=== PATIENT | female | born 1995 | race African-American/Black ===

== ENCOUNTER 2016-07-15 14:27 | Emergency (ER) | payer SELFPAY ==
[~2016-07-15] VITALS: Ht 154.9 cm; Wt 55.0 kg
[~2016-07-15 14:27] MED LIST: ALBU6.7H INH; EXTR500C PO; LABE200 PO; MOBI15TA PO; NIFE1TAB85 PO; TRAM50 PO; ZOFR4TAB PO
[2016-07-15 14:29] VITALS: BP 113/73; PULSE 78; RESP 14; TEMP 98.3; O2SAT 98
--- NOTE | 2016-07-15 15:13 | PD ---
HPI Chief Complaint: Abdominal Pain Time Seen by Provider: 15:13 Travel History International Travel<30 days: No Contact w/Intl Traveler<30days: No Traveled to known affect area: No History of Present Illness HPI 20-year-old female presents to the emergency department for evaluation of lower abdominal pain for 3 weeks. States that the pain is intermittent. States that it is sometimes sharp and sometimes like a squeezing pain. Denies any aggravating or alleviating factors. She is not taking anything for her symptoms so far. Denies any fever, chills, nausea, vomiting, diarrhea, constipation, burning with urination, painful urination, hematuria, vaginal discharge. Denies , last menstrual period was 2 weeks ago. She does admit to being told she had an ovarian cyst in the past. Denies any prior abdominal surgeries. Patient is sexually active. No other complaints. PFSH Past Medical History Hx Anticoagulant Therapy: No ADHD: No Asthma: Yes Blood Disorders: No Anxiety: Yes Depression: Yes Cardiovascular Problems: Yes (HTN) Chemotherapy: No Cerebrovascular Accident: No Diabetes: No Diminished Hearing: No Respiratory: Yes (ASTHMA) Immunizations Current: Yes Seizures: No ?: Not LMP: 07/05/16 : 2 Para: 1 Past Surgical History Section: Yes Hysterectomy: No Other Surgery: No Social History Alcohol Use: No Tobacco Use: No Substance Use: No Allergies-Medications (Allergen,Severity, Reaction): Coded Allergies: Bees (Verified Allergy, Severe, SWELLS UP, 07/15/16) [place] (Verified Allergy, Severe, SWELLS UP, 07/15/16) PEANUTS (Verified Allergy, Severe, SWELLS UP, 07/15/16) Wasp (Verified Allergy, Severe, SWELLS UP, 07/15/16) Reported Meds & Prescriptions Reported Meds & Active Scripts Active Zofran (Ondansetron HCl) 4 Mg Tab 4 Mg PO Q6HR PRN Acetaminophen Extra Strength (Acetaminophen) 500 Mg Cap 1,000 Mg PO Q6H PRN Ultram (Tramadol HCl) 50 Mg Tab 1 Tab PO Q6HR FOR PAIN Mobic (Meloxicam) 15 Mg Tab 15 Mg PO DAILY Nifedipine Er (Nifedipine) 30 Mg Tab 30 Mg PO DAILY Trandate 200 M200 Mg 200 Mg Tab 200 Mg PO Q12HR Reported Proventil Hfa (Albuterol Sulfate) 6.7 Gm Aero 0 INH UNKNOWN DOSE Review of Systems Except as stated in HPI: all other systems reviewed are Neg Physical Exam Narrative GENERAL: Well-nourished and well-developed pleasant patient in no acute distress who is nontoxic appearing. SKIN: Warm and dry. HEAD: Normocephalic and atraumatic. EYES: No injection, drainage, or hyphema noted. PERRLA. EOMI. ENT: No nasal drainage noted. Oropharynx is clear. NECK: Supple and the trachea is midline. CARDIOVASCULAR: Regular rate and rhythm. RESPIRATORY: Breath sounds are equal bilaterally with no accessory muscle use, wheezing, rhonchi, or crackles. GASTROINTESTINAL: Mild suprapubic tenderness to palpation. Abdomen is soft and nondistended. Negative McBurney's point. Negative Lei sign. No rebound tenderness or guarding. GENITOURINARY: Normal external genitalia without lesions or erythema. Vaginal vault without blood or drainage. Positive cervical motion tenderness. Uterus nontender and nonenlarged. Bilateral adnexa nontender without masses. MUSCULOSKELETAL: No obvious deformities, swelling, cyanosis, or ecchymosis is present throughout the upper and lower extremities. NEUROLOGICAL: Awake, alert, and oriented. Normal speech and gait. Cranial nerves are grossly intact. Data Data Last Documented VS Vital Signs Date Time Temp Pulse Resp B/P Pulse Ox O2 Delivery O2 Flow Rate FiO2 07/15/16 14:29 98.3 78 14 113/73 98 Room Air Orders Gc And Chlamydia Pcr (07/15/16 15:12) Wet Prep Profile (07/15/16 15:12) Urinalysis - C+S If Indicated (07/15/16 15:12) Ed Urine Pregnancytest Poc (07/15/16 15:12) Ceftriaxone Inj (Rocephin Inj) (07/15/16 16:00) Lidocaine 1% Inj (50 Ml) (Xylocaine 1% I (07/15/16 16:00) Azithromycin (Zithromax) (07/15/16 16:00) Labs Laboratory Tests Test 07/15/16 15:35 Urine Color YELLOW Urine Turbidity HAZY Urine pH 6.0 Urine Specific [place] 1.019 Urine Protein NEG mg/dL Urine Glucose (UA) NEG mg/dL Urine Ketones NEG mg/dL Urine Occult Blood NEG Urine Nitrite NEG Urine Bilirubin NEG Urine Urobilinogen LESS THAN 2.0 MG/DL Urine Leukocyte Esterase NEG Urine RBC LESS THAN 1 /hpf Urine WBC 1 /hpf Urine Squamous Epithelial 4 /hpf Cells Microscopic Urinalysis Comment CULT NOT INDICATED Clue Cells (Wet Prep) NONE SEEN Vaginal Trichomonas (Wet Prep) NONE SEEN Vaginal Yeast (Wet Prep) NONE SEEN MDM Medical Decision Making Medical Screen Exam Complete: Yes Emergency Medical Condition: Yes Differential Diagnosis STI versus PID versus cystitis versus urethritis versus ovarian cyst Narrative Course 20-year-old female presents to the emergency department for evaluation of lower abdominal pain intermittently for 3 weeks. Patient is afebrile, vital signs are stable. There is no associated symptoms. Patient appears very well overall. Abdominal examination is benign. Her pain is more so pelvic, therefore we'll do a urinalysis and pelvic examination. Patient has cervical motion tenderness, suspicious for PID. She'll be treated empirically for gonorrhea and chlamydia. ED urine test is negative. Urinalysis is unremarkable. Wet prep is negative. Gonorrhea and Chlamydia is pending. Discussed supportive care and when to return to the emergency Department. Advised follow-up with health Department or her christmas bell ringer. Patient is stable for discharge. I discussed the case with my attending physician Dr. Butcher who is aware of the patients history, physical examination findings, and treatment plan. Diagnosis Primary Impression: PID (acute pelvic inflammatory disease) Referrals: [facility] [employer] Operator Patient Instructions: General Instructions, Pelvic Inflammatory Disease (ED) Additional Instructions: Follow-up with your Primary Care Physician. Return to the ED for any acute worsening of symptoms. Med/Other Pt SpecificInfo: No Change to Meds Disposition: 01 DISCHARGE HOME Condition: Stable Moon Rosario Jul 15, 2016 15:13
--- NOTE | 2016-07-15 15:53 | PD ---
Data Data Last Documented VS Vital Signs Date Time Temp Pulse Resp B/P Pulse Ox O2 Delivery O2 Flow Rate FiO2 07/15/16 14:29 98.3 78 14 113/73 98 Room Air Orders Gc And Chlamydia Pcr (07/15/16 15:12) Wet Prep Profile (07/15/16 15:12) Urinalysis - C+S If Indicated (07/15/16 15:12) Ed Urine Pregnancytest Poc (07/15/16 15:12) Ceftriaxone Inj (Rocephin Inj) (07/15/16 16:00) Lidocaine 1% Inj (50 Ml) (Xylocaine 1% I (07/15/16 16:00) Azithromycin (Zithromax) (07/15/16 16:00) MDM Supervised Visit with GUCCI: Yes Narrative Course I, Dr. Butcher, have reviewed the advance practice practioner's documentation and am in agreement, met with the patient face to face, made the diagnosis, and the medical decision making was done by me. *My assessment and Findings: 20-year-old female with 3 weeks of intermittent low sharp abdominal discomfort. Benign abdominal examination but on pelvic exam patient has cervical motion tenderness. Symptoms classic for PID, differential includes STD, UTI, . Urine test negative. We' ll treat empirically for PID awaiting wet prep and urine for disposition home. Diagnosis Primary Impression: PID (acute pelvic inflammatory disease) Referrals: Manager Property Additional Instruction: Follow-up with your Primary Care Physician. Return to the ED for any acute worsening of symptoms. Disposition: 01 DISCHARGE HOME Condition: Stable Karyna Butcher MD Jul 15, 2016 15:53
[2016-07-15] MEDS ORDERED: cefTRIAXone 250 MG VIAL IM ONE (16:00)
[2016-07-15] MEDS ORDERED: AZITHROMYCIN 250 MG TAB PO ONE (16:00)
[2016-07-15] MEDS ORDERED: LIDOCAINE HCL 1% 50 ML VIAL IM ONE (16:00)
[2016-07-15 16:11] LABS: BLOOD, URINE NEG (NEG); COMMENT (UR) CULT NOT INDICATED; CULTURE IF INDICATED CULT NOT INDICATED; GLUCOSE,URINE NEG (NEG); KETONE, URINE NEG (NEG); NITRITE,URINE NEG (NEG); SQUAMOUS EPITHELIAL CELL URINE 4 /hpf (0-5); URINE COLOR YELLOW (YELLW/STRAW)
[2016-07-15 17:37] LABS: CHLAMYDIA PCR NOT DETECTED (NOT DETECT); NEISSERIA PCR NOT DETECTED (NOT DETECT)
== END 2016-07-15 16:48 | disposition home or self-care (01) ==
LOC: NEPB 14:27
DX: N73.9 Female pelvic inflammatory disease, unspecified (principal); J45.909 Unspecified asthma, uncomplicated; I10 Essential (primary) hypertension
CPT/HCPCS: 81001; 84703; 87210; 87491; 87591; 96372; 99284; J0696

== ENCOUNTER 2016-09-29 21:27 | Emergency (ER) | payer SELFPAY ==
[~2016-09-29] VITALS: Ht 154.9 cm; Wt 50.0 kg
[2016-09-29 21:46] VITALS: BP 116/74; PULSE 77; RESP 16; TEMP 97.9; O2SAT 100
[2016-09-29] MEDS ORDERED: LURA20TA PO (21:53)
[2016-09-29] MEDS ORDERED: SERT25TA83 PO (21:53)
[2016-09-29] MEDS ORDERED: LABE200T2 PO (21:53)
[2016-09-29 22:00] VITALS: RESP 18; O2SAT 100
[2016-09-29] MEDS ORDERED: SODIUM CHLOR 0.9% 1000 ML INJ 1,000 ML IV ONE (22:00)
[2016-09-29] MEDS ORDERED: SODIUM CHLORIDE 0.9% FLUSH 10 ML FLUSH IVF PRN (22:00)
--- NOTE | 2016-09-29 22:17 | RADRPT ---
EXAM DATE/TIME: 09/29/2016 21:55 [facility] COMPARISON: No previous studies available for comparison. INDICATIONS : Syncope. Possible overdose. MEDICAL HISTORY : Hypertension. SURGICAL HISTORY : section. ENCOUNTER: Initial ACUITY: 1 day PAIN SCORE: 0/10 LOCATION: Bilateral chest FINDINGS: A single view of the chest demonstrates the lungs to be symmetrically aerated without evidence of mas s, infiltrate or effusion. The cardiomediastinal contours are unremarkable. Osseous structures are intact. CONCLUSION: No acute disease. Omar Connell MD FACR on September 29, 2016 at 22:15 Board Certified Radiologist. This report was verified electronically.
--- NOTE | 2016-09-29 22:32 | PD ---
HPI Chief Complaint: OD/ Ingestion Time Seen by Provider: 21:55 Travel History International Travel<30 days: No Contact w/Intl Traveler<30days: No Traveled to known affect area: No History of Present Illness HPI The patient is a 20 year old female who presents to the [facility] emergency department with a history of taking 2 extra doses of her Latuda and 1 extra dose of her sertraline at 7 p.m. to try to help herself sleep. The patient reports that she's been having difficulty sleeping. The patient reports that after doing that as she began to not feel well, reportedly having a mild headache. She called her mom and asked her to come over. When mom arrived, she told her that she took an extra dose of her medicines, therefore mom called 911. The patient denies having any depression or thoughts of harming herself. Upon mom's arrival I also interviewed her and she denies any increased depression or suicidal ideations and the patient. The patient does have a history of bipolar disorder. The patient has been Mcgill acted once as a child. The patient reports that since arriving in the emergency department her headache is improved. The patient denies any recent fevers, cough, congestion, neck pain, chest pain, shortness of breath, abdominal pain, vomiting, diarrhea, urinary symptoms, or other neurologic symptoms. PFSH Past Medical History Narrative Medical The patient's past medical history is significant for bipolar disorder, asthma, history of a learning disability. Hx Anticoagulant Therapy: No ADHD: No Asthma: Yes Blood Disorders: No Anxiety: Yes Depression: Yes Cardiovascular Problems: Yes (HTN) Chemotherapy: No Cerebrovascular Accident: No Diabetes: No Diminished Hearing: No Respiratory: Yes (ASTHMA) Immunizations Current: Yes Seizures: No Tetanus Vaccination: Unknown Influenza Vaccination: No ?: Not LMP: 09/20/16 : 2 Para: 1 Past Surgical History Narrative Surgical The patient's past surgical history is significant for a . Section: Yes Hysterectomy: No Other Surgery: No Social History Alcohol Use: No Tobacco Use: No Substance Use: Yes (MARIJUANA) Allergies-Medications (Allergen,Severity, Reaction): Coded Allergies: Bees (Verified Allergy, Severe, SWELLS UP, 07/15/16) [place] (Verified Allergy, Severe, SWELLS UP, 07/15/16) PEANUTS (Verified Allergy, Severe, SWELLS UP, 07/15/16) Wasp (Verified Allergy, Severe, SWELLS UP, 07/15/16) Reported Meds & Prescriptions Reported Meds & Active Scripts Active Reported Latuda (Lurasidone) 20 Mg Tab 20 Mg PO DAILY Sertraline (Sertraline HCl) 25 Mg Tab 25 Mg PO DAILY Labetalol (Labetalol HCl) 200 Mg Tab 200 Mg PO BID Review of Systems General / Constitutional: No: Fever Eyes: No: Visual changes HENT: Positive: Headaches, No: Sore Throat, Rhinorrhea, Congestion, Neck Stiffness, Neck Pain Cardiovascular: No: Chest Pain or Discomfort Respiratory: No: Cough, Shortness of Breath Gastrointestinal: No: Nausea, Vomiting, Diarrhea, Abdominal Pain Genitourinary: No: Dysuria Musculoskeletal: No: Pain Skin: No Rash Neurologic: Positive: Headache, No: Weakness, Change in Mentation, Slurred Speech, Sensory Disturbance Psychiatric: Positive: Mood Disorder, No: Anxiety, Depression, Suicidal Ideations, Disorder of Thought, Substance Abuse, Homicidal Ideation Endocrine: No: Polydipsia Hematologic/Lymphatic: No: Easy Bruising Physical Exam Narrative General: The patient is a well-developed well-nourished female in no acute distress. Head and Neck exam: Head is normocephalic atraumatic. Eyes: EOMI, pupils are equal round and reactive to light. Nose: Midline septum with pink mucous membranes Mouth: Dentition unremarkable. Moist mucus membranes. Posterior oropharynx is not erythematous. No tonsillar hypertrophy. Uvula midline. Airway patent. Neck: No palpable lymphadenopathy. No nuchal rigidity. No thyromegaly. Cardiovascular: Regular rate and rhythm without murmurs, gallops, or rubs. Lungs: Clear to auscultation bilaterally. No wheezes, rhonchi, or rales. Abdomen: Soft, without tenderness to palpation in all 4 quadrants of the abdomen. No guarding, rebound, or rigidity. Normal bowel sounds are audible. No tenderness on palpation of McBurney's point. Extremities: No clubbing, cyanosis, or edema. 2+ pulses in all 4 extremities. No calf tenderness on palpation. Back: No spinous process tenderness to palpation. No costovertebral angle tenderness to palpation. Neurologic Exam: Grossly nonfocal. Skin Exam: No rash noted. Intact skin that is warm and dry. Data Data Last Documented VS Vital Signs Date Time Temp Pulse Resp B/P Pulse Ox O2 Delivery O2 Flow Rate FiO2 09/29/16 22:00 18 100 Room Air 09/29/16 21:50 77 09/29/16 21:46 97.9 116/74 Orders Electrocardiogram (09/29/16 21:55) Beta Hcg (Quant/Titer) (09/29/16 21:55) Complete Blood Count With Diff (09/29/16 21:55) Comprehensive Metabolic Panel (09/29/16 21:55) Prothrombin Time / Inr (Pt) (09/29/16 21:55) Act Partial Throm Time (Ptt) (09/29/16 21:55) Urinalysis - C+S If Indicated (09/29/16:55) Chest, Single Ap (09/29/16 21:55) Blood Glucose (09/29/16 21:55) Iv Access Insert/Monitor (09/29/16 21:55) Ecg Monitoring (09/29/16 21:55) Oximetry (09/29/16 21:55) Psych Screen (09/29/16 21:55) Sodium Chloride 0.9% Flush (Ns Flush) (09/29/16 22:00) Call Poison Control (09/29/16 21:55) Drug Screen, Random Urine (09/29/16 21:55) Alcohol (Ethanol) (09/29/16 21:55) Salicylates (Aspirin) (09/29/16 21:55) Tylenol (Acetaminophen) (09/29/16 21:55) Sodium Chlor 0.9% 1000 Ml Inj (Ns 1000 M (09/29/16 22:00) Urine Culture (09/29/16 22:00) Labs Laboratory Tests Test 09/29/16 09/29/16 21:40 22:00 White Blood Count 6.0 TH/MM3 Red Blood Count 3.95 MIL/MM3 Hemoglobin 10.4 GM/DL Hematocrit 31.6 % Mean Corpuscular Volume 79.9 FL Mean Corpuscular Hemoglobin 26.2 PG Mean Corpuscular Hemoglobin 32.8 % Concent Red Cell Distribution Width 14.3 % Platelet Count 259 TH/MM3 Mean Platelet Volume 8.2 FL Neutrophils (%) (Auto) 55.1 % Lymphocytes (%) (Auto) 34.2 % Monocytes (%) (Auto) 8.0 % Eosinophils (%) (Auto) 2.3 % Basophils (%) (Auto) 0.4 % Neutrophils # (Auto) 3.3 TH/MM3 Lymphocytes # (Auto) 2.1 TH/MM3 Monocytes # (Auto) 0.5 TH/MM3 Eosinophils # (Auto) 0.1 TH/MM3 Basophils # (Auto) 0.0 TH/MM3 CBC Comment DIFF FINAL Differential Comment Prothrombin Time 11.7 SEC Prothromb Time International 1.1 RATIO Ratio Activated Partial 25.7 SEC Thromboplast Time Sodium Level 141 MEQ/L Potassium Level 3.3 MEQ/L Chloride Level 107 MEQ/L Carbon Dioxide Level 24.7 MEQ/L Anion Gap 9 MEQ/L Blood Urea Nitrogen 7 MG/DL Creatinine 0.87 MG/DL Estimat Glomerular Filtration 99 ML/MIN Rate Random Glucose 102 MG/DL Calcium Level 8.4 MG/DL Total Bilirubin 0.3 MG/DL Aspartate Amino Transf 8 U/L (AST/SGOT) Alanine Aminotransferase 10 U/L (ALT/SGPT) Alkaline Phosphatase 67 U/L Total Protein 7.1 GM/DL Albumin 3.5 GM/DL Human Chorionic Gonadotropin, LESS THAN 1 Quant MIU/ML Salicylates Level LESS THAN 1.7 MG/DL Acetaminophen Level LESS THAN 2.0 MCG/ML Ethyl Alcohol Level LESS THAN 3 MG/DL Urine Color YELLOW Urine Turbidity HAZY Urine pH 6.0 Urine Specific [place] 1.029 Urine Protein 30 mg/dL Urine Glucose (UA) NEG mg/dL Urine Ketones NEG mg/dL Urine Occult Blood NEG Urine Nitrite NEG Urine Bilirubin NEG Urine Urobilinogen 2.0 MG/DL Urine Leukocyte Esterase LARGE Urine RBC 3 /hpf Urine WBC 88 /hpf Urine Squamous Epithelial 3 /hpf Cells Urine Mucus FEW /lpf Microscopic Urinalysis Comment CULTURE INDICATED Urine Opiates Screen NEG Urine Barbiturates Screen NEG Urine Amphetamines Screen NEG Urine Benzodiazepines Screen NEG Urine Cocaine Screen NEG Urine Cannabinoids Screen POS [facility] Medical Decision Making Medical Screen Exam Complete: Yes Emergency Medical Condition: Yes Medical Record Reviewed: Yes Interpretation(s) Last Impressions Chest X-Ray 09/29/16 3344 Signed Impressions: Service Date/Time: Thursday, September 29, 2016 21:55 - CONCLUSION: No acute disease. Omar Connell MD FACR Differential Diagnosis Accidental overdose, versus intentional overdose Narrative Course During the course of the patients emergency department visit, the patients history, examination, and differential diagnosis were reviewed with the patient. The patient had IV access obtained and blood work sent for analysis. The patient was put on a school lunch monitor with oximetry and blood pressure monitoring. An EKG was done on arrival. The patient's EKG reveals a sinus rhythm with a sinus arrhythmia heart rate of 64, no acute ST segment elevation or depression. T waves are inverted in V1, V2. Poison control will be called regarding this patient's case. The patient was provided normal saline 1 L IV fluid bolus. The patients laboratory studies were reviewed and remarkable for white count of 6.0, hemoglobin 10.4, platelets 259 with a normal differential, CMP is remarkable for potassium of 3.3 which was supplemented orally, calcium 8.4, AST 8, test is negative, urine drug screen is positive for cannabinoids, salicylate less than 1.7, acetaminophen less than 2, alcohol level less than 3, PT 11.7, PTT 25.7, urinalysis shows 30 protein, large leukocyte esterase, 3 RBCs , 88 WBCs, 3 squamous epithelial cells, culture indicated. The patient will be treated for a urinary tract infection with Macrobid. Radiology studies were reviewed and remarkable for a chest x-ray that shows no acute abnormality. The patient denies any suicidal or homicidal ideations. She denies having any increased anxiety or depression. The patient was educated regarding the importance of only taking her medications as prescribed. The patient does not seem to be a risk for suicide. Poison control was control was called by the patient's nurse. They recommended observation for 4 hours after the ingestion to assess for any symptoms. The patient has remained asymptomatic. The patient will be discharged home. The patient is resting comfortably and feels better, is alert and in no distress. The patients results and examination findings were discussed with the patient. The repeat examination is unremarkable and benign. The history, exam, diagnostic testing, and current condition do not suggest any significant pathology to warrant further testing, continued ED treatment, admission, or surgical evaluation at this point. The vital signs have been stable. The patient does not have uncontrollable pain, intractable vomiting, or other significant symptoms. The patient's condition is stable and appropriate for discharge. The patient will pursue further outpatient evaluation with a primary care physician or other designated or consulting physician as indicated in the discharge instructions. The patient expressed understanding and was agreeable with this plan. Diagnosis Primary Impression: Accidental overdose Qualified Code: T50.901A - Accidental overdose, initial encounter Additional Impression: Urinary tract infection Qualified Code: N30.00 - Acute cystitis without hematuria Referrals: Primary Care Physician Patient Instructions: General Instructions, Urinary Tract Infection in Women ( ED) Additional Instructions: The patient is instructed regarding the importance of taking her prescriptions as prescribed. She is instructed to avoid ever taking extra doses of her medicine. Med/Other Pt SpecificInfo: Prescription(s) given Disposition: 01 DISCHARGE HOME Condition: Stable Leandra Kramer MD Sep 29, 2016 22:32
[2016-09-29 22:41] LABS: AUTOMATED NEUTROPHIL # 3.3 TH/MM3 (1.8-7.7); BASOPHIL % 0.4 % (0.0-2.0); EOSINOPHIL # 0.1 TH/MM3 (0-0.4); EOSINOPHIL % 2.3 % (0.0-4.0); HEMATOCRIT 31.6 % (35.0-46.0); HEMO FLAGS DIFF FINAL; LYMPH % 34.2 % (9.0-44.0); LYMPHOCYTE # 2.1 TH/MM3 (1.0-4.8); MEAN CELL VOLUME 79.9 FL (80.0-100.0); MEAN CORPUSCULAR HEMOGLOBIN 26.2 PG (27.0-34.0); MEAN CORPUSCULAR HGB CONC 32.8 % (32.0-36.0); NEUT % 55.1 % (16.0-70.0); PLATELET COUNT 259 TH/MM3 (150-450); RED BLOOD COUNT 3.95 MIL/MM3 (4.00-5.30); RED CELL DISTRIBUTION WIDTH 14.3 % (11.6-17.2)
[2016-09-29 22:59] LABS: ANION GAP 9 MEQ/L (5-15); AST (GOT) 8 U/L (15-37); BICARBONATE 24.7 MEQ/L (21.0-32.0); BLOOD UREA NITROGEN 7 MG/DL (7-18); CHLORIDE 107 MEQ/L (98-107); GLOMERULAR FILTRATION RATE 99 ML/MIN (>89); POTASSIUM 3.3 MEQ/L (3.5-5.1); SODIUM (NA) 141 MEQ/L (136-145)
[2016-09-29 23:00] LABS: BLOOD, URINE NEG (NEG); COMMENT (UR) CULTURE INDICATED; CULTURE IF INDICATED CULTURE INDICATED; GLUCOSE,URINE NEG (NEG); KETONE, URINE NEG (NEG); MUCUS URINE FEW /lpf (OCC); NITRITE,URINE NEG (NEG); SQUAMOUS EPITHELIAL CELL URINE 3 /hpf (0-5); URINE COLOR YELLOW (YELLW/STRAW)
[2016-09-29 23:01] LABS: APTT (PATIENT) 25.7 SEC (24.3-30.1); INTERNATIONAL NORMALIZED RATIO 1.1 RATIO; PROTHROMBIN TIME - PATIENT 11.7 SEC (9.8-11.6)
[2016-09-29 23:03] LABS: AMPHETAMINE, URINE NEG (NEG); BARBITURATES, URINE NEG (NEG); COCAINE, URINE NEG (NEG)
[2016-09-29 23:04] LABS: ACETAMINOPHEN LESS THAN 2.0 MCG/ML (10.0-30.0); ALKALINE PHOSPHATASE 67 U/L (45-117); ALT (GPT) 10 U/L (10-53); BETA HCG QUANT LESS THAN 1 MIU/ML (0-5); TOTAL BILIRUBIN ADULT 0.3 MG/DL (0.2-1.0)
[2016-09-30] VITALS: BP 100/57; PULSE 71; RESP 18; O2SAT 99
[2016-09-30] MEDS ORDERED: NITROFURANTOIN MONOHYD MACROCR 100 MG CAP PO ONE (00:15)
[2016-09-30] MEDS ORDERED: POTASSIUM CHLORIDE 20 MEQ CONTROLLED RELEASE TAB PO ONE (00:15)
[2016-09-30] MEDS ORDERED: MACR100C2 PO (00:57)
--- NOTE | 2016-09-30 11:38 | EKG ---
Date Performed: 09/29/2016 Time Performed: 21:53:35 PTAGE: 20 years EKG: Sinus rhythm WITH SINUS ARRHYTHMIA NORMAL ECG INTERPRETATION BASED ON A DEFAULT AGE OF 39 YEARS PREVIOUS TRACING : 05/08/2009 19.55 DOCTOR: Ivan Pedroza Interpretating Date/Time 09/30/2016 11:35:25
== END 2016-09-30 01:04 | disposition home or self-care (01) ==
LOC: NEPC 21:27
DX: T43.221A Poisoning by selective serotonin reuptake inhibitors, accidental (unintentional), initial encounter (principal); G44.40 Drug-induced headache, not elsewhere classified, not intractable; N30.00 Acute cystitis without hematuria; B96.89 Other specified bacterial agents as the cause of diseases classified elsewhere; J45.909 Unspecified asthma, uncomplicated; I10 Essential (primary) hypertension; F31.9 Bipolar disorder, unspecified; I49.8 Other specified cardiac arrhythmias
CPT/HCPCS: 71010; 80053; 80307; 81001; 84702; 85025; 85610; 85730; 87086; 93005; 96360; 99284; J7030

== ENCOUNTER 2017-01-09 13:24 | Emergency (ER) | payer SELFPAY ==
[~2017-01-09] VITALS: Ht 154.9 cm; Wt 50.0 kg
[~2017-01-09 13:24] MED LIST changes: -ALBU6.7H INH; -EXTR500C PO; -LABE200 PO; +LABE200T2 PO; +LURA20TA PO; +MACR100C2 PO; -MOBI15TA PO; -NIFE1TAB85 PO; +SERT25TA83 PO; -TRAM50 PO; -ZOFR4TAB PO
[2017-01-09 13:25] VITALS: BP 122/82; PULSE 88; RESP 14; TEMP 98.3; O2SAT 97
--- NOTE | 2017-01-09 15:57 | PD ---
HPI Chief Complaint: Abdominal Pain Time Seen by Provider: 15:57 Travel History International Travel<30 days: No Contact w/Intl Traveler<30days: No Traveled to known affect area: No PFSH Past Medical History Hx Anticoagulant Therapy: No ADHD: No Asthma: Yes Blood Disorders: No Anxiety: Yes Depression: Yes Cardiovascular Problems: Yes (HTN) Chemotherapy: No Cerebrovascular Accident: No Diabetes: No Diminished Hearing: No Respiratory: Yes (ASTHMA) Immunizations Current: Yes Seizures: No ?: Unknown LMP: 01/03/17 : 2 Para: 1 Past Surgical History Section: Yes Hysterectomy: No Other Surgery: No Social History Alcohol Use: No Tobacco Use: No Substance Use: Yes (MARIJUANA) Allergies-Medications (Allergen,Severity, Reaction): Coded Allergies: Bees (Verified Allergy, Severe, SWELLS UP, 07/15/16) [place] (Verified Allergy, Severe, SWELLS UP, 07/15/16) PEANUTS (Verified Allergy, Severe, SWELLS UP, 07/15/16) Wasp (Verified Allergy, Severe, SWELLS UP, 07/15/16) Reported Meds & Prescriptions Reported Meds & Active Scripts Active Macrobid (Nitrofurantoin Monoh/Nitrofur Macro) 100 Mg Cap 100 Mg PO BID 10 Days Reported Latuda (Lurasidone) 20 Mg Tab 20 Mg PO DAILY Sertraline (Sertraline HCl) 25 Mg Tab 25 Mg PO DAILY Labetalol (Labetalol HCl) 200 Mg Tab 200 Mg PO BID Data Data Last Documented VS Vital Signs Date Time Temp Pulse Resp B/P Pulse Ox O2 Delivery O2 Flow Rate FiO2 01/09/17 13:25 98.3 88 14 122/82 97 Maribell Elena Jan 09, 2017 15:57
--- NOTE | 2017-01-09 16:41 | PD ---
HPI Chief Complaint: Abdominal Pain Time Seen by Provider: 15:57 Travel History International Travel<30 days: No Contact w/Intl Traveler<30days: No Traveled to known affect area: No History of Present Illness HPI 21-year-old female came to the emergency room with history of pelvic pain. Patient says this has been going on for past 2 weeks. Upon asking she said she could be . No history of fever or chills. No history of hematuria. She has currently her menstrual cycle. She says in her past 2 pregnancies she bled through the entire . No vaginal discharge. PFSH Past Medical History Narrative Medical List of her past medical, surgical, social and family history is reviewed from the nursing note. Hx Anticoagulant Therapy: No ADHD: No Asthma: Yes Blood Disorders: No Anxiety: Yes Depression: Yes Cardiovascular Problems: Yes (HTN) Chemotherapy: No Cerebrovascular Accident: No Diabetes: No Diminished Hearing: No Hypertension: Yes Respiratory: Yes (ASTHMA) Immunizations Current: Yes Seizures: No Tetanus Vaccination: Unknown Influenza Vaccination: No ?: Not LMP: 01/03/17 : 2 Para: 2 Past Surgical History Section: Yes (x1) Hysterectomy: No Other Surgery: No Social History Alcohol Use: No Tobacco Use: No Substance Use: Yes (MARIJUANA) Allergies-Medications (Allergen,Severity, Reaction): Coded Allergies: Bees (Verified Allergy, Severe, SWELLS UP, 01/09/17) [place] (Verified Allergy, Severe, SWELLS UP, 01/09/17) PEANUTS (Verified Allergy, Severe, SWELLS UP, 01/09/17) Wasp (Verified Allergy, Severe, SWELLS UP, 01/09/17) Comments List of her allergies reviewed from the nursing note. Reported Meds & Prescriptions Reported Meds & Active Scripts Active Reported Labetalol (Labetalol HCl) 200 Mg Tab 200 Mg PO BID Narrative Medication List of her home medications reviewed from the nursing note. Review of Systems Except as stated in HPI: all other systems reviewed are Neg Physical Exam Narrative GENERAL: Awake, alert, no obvious distress SKIN: Focused skin assessment warm/dry. HEAD: Atraumatic. Normocephalic. EYES: Pupils equal and round. No scleral icterus. No injection or drainage. ENT: No nasal bleeding or discharge. Mucous membranes pink and moist. NECK: Trachea midline. No JVD. CARDIOVASCULAR: Regular rate and rhythm. No murmur appreciated. RESPIRATORY: No accessory muscle use. Clear to auscultation. Breath sounds equal bilaterally. GASTROINTESTINAL: Abdomen soft, non-tender, nondistended. Hepatic and splenic margins not palpable. MUSCULOSKELETAL: No obvious deformities. No clubbing. No cyanosis. No edema. NEUROLOGICAL: Awake and alert. No obvious cranial nerve deficits. Motor grossly within normal limits. Normal speech. PSYCHIATRIC: Appropriate mood and affect; insight and judgment normal. Data Data Last Documented VS Vital Signs Date Time Temp Pulse Resp B/P Pulse Ox O2 Delivery O2 Flow Rate FiO2 01/09/17 13:25 98.3 88 14 122/82 97 Orders Urinalysis - C+S If Indicated (01/09/17 16:18) Ed Urine Pregnancytest Poc (01/09/17 16:18) Labs Laboratory Tests Test 01/09/17 16:30 Urine Color LIGHT-YELLOW Urine Turbidity CLEAR Urine pH 7.0 Urine Specific [place] 1.016 Urine Protein NEG mg/dL Urine Glucose (UA) NEG mg/dL Urine Ketones NEG mg/dL Urine Occult Blood NEG Urine Nitrite NEG Urine Bilirubin NEG Urine Urobilinogen LESS THAN 2.0 MG/DL Urine Leukocyte Esterase NEG Urine WBC 1 /hpf Urine Squamous Epithelial 1 /hpf Cells Urine Bacteria OCC /hpf Urine Mucus FEW /lpf Microscopic Urinalysis Comment CULT NOT INDICATED MDM Medical Decision Making Medical Screen Exam Complete: Yes Emergency Medical Condition: Yes Medical Record Reviewed: Yes Differential Diagnosis Cystitis, , nonspecific pain Narrative Course 4:40 PM awaiting for the urine and UA result. 5:06 PM UA is negative. I'll discharge her home. Procedures EKG Prior to Arrival: No Diagnosis Primary Impression: Abdominal pain Qualified Code: R10.9 - Abdominal pain, unspecified location Referrals: Primary Care Physician Med/Other Pt SpecificInfo: No Change to Meds Disposition: 01 DISCHARGE HOME Condition: Stable Esther Do MD Jan 09, 2017 16:41
[2017-01-09 16:49] LABS: BACTERIA, URINE OCC /hpf; BLOOD, URINE NEG (NEG); COMMENT (UR) CULT NOT INDICATED; CULTURE IF INDICATED CULT NOT INDICATED; GLUCOSE,URINE NEG (NEG); KETONE, URINE NEG (NEG); MUCUS URINE FEW /lpf (OCC); NITRITE,URINE NEG (NEG); SQUAMOUS EPITHELIAL CELL URINE 1 /hpf (0-5); URINE COLOR LIGHT-YELLOW (YELLW/STRAW)
== END 2017-01-09 16:35 | disposition home or self-care (01) ==
LOC: NEPD 13:24
DX: R10.9 Unspecified abdominal pain (principal); Z88.0 Allergy status to penicillin; J45.909 Unspecified asthma, uncomplicated; I10 Essential (primary) hypertension
CPT/HCPCS: 81001; 84703; 99283

== ENCOUNTER 2017-02-05 11:58 | Emergency (ER) | payer SELFPAY ==
[~2017-02-05] VITALS: Ht 154.9 cm; Wt 51.0 kg
[~2017-02-05 11:58] MED LIST changes: -LURA20TA PO; -MACR100C2 PO; -SERT25TA83 PO
[2017-02-05 12:00] VITALS: BP 114/76; PULSE 66; TEMP 98.4; O2SAT 99
--- NOTE | 2017-02-05 12:05 | PD ---
Physical Exam Date Seen by Provider: Feb 05, 2017 Time Seen by Provider: 12:04 Narrative 21 YOBF C/O LOWER AB PELVIC PAIN FOR 2 DAYS POS D/C. LMP 2 DAYS VS REVIEWED WAITING FOR BED PLACEMENT Data Data Last Documented VS Vital Signs Date Time Temp Pulse Resp B/P Pulse Ox O2 Delivery O2 Flow Rate FiO2 02/05/17 12:00 98.4 66 114/76 99 MDM Supervised Visit with GUCCI: Marco Garner Feb 05, 2017 12:05
[2017-02-05 12:44] VITALS: RESP 18; O2SAT 99
--- NOTE | 2017-02-05 12:49 | PD ---
HPI Chief Complaint: Abdominal Pain Time Seen by Provider: 12:34 Travel History International Travel<30 days: No Contact w/Intl Traveler<30days: No Traveled to known affect area: No History of Present Illness HPI Patient is a 19-year-old female who presents to emergency room with complaints of intermittent lower abdominal pain. She reports that pain is located to her suprapubic region, reports that sometimes she has a cramping sensation to her abdomen. Reports that when she has these symptoms, they are usually associated with a UTI. Patient denies any abdominal pain or cramping at this time. Denies fever/chills. Denies n/v. Reports that symptoms have been ongoing "for a while." Patient also reports vaginal discharge. Reports that she has noticed a "smell" as well as whitish discharge from her vagina. She is sexually active and does use contraceptives. Denies history of STD's in the past PFSH Past Medical History Hx Anticoagulant Therapy: No ADHD: No Asthma: Yes Blood Disorders: No Anxiety: Yes Depression: Yes Cardiovascular Problems: Yes (HTN) Chemotherapy: No Cerebrovascular Accident: No Diabetes: No Diminished Hearing: No Hypertension: Yes Respiratory: Yes (ASTHMA) Immunizations Current: Yes Seizures: No ?: Unknown : 2 Para: 2 Past Surgical History Section: Yes (x1) Hysterectomy: No Other Surgery: No Social History Alcohol Use: No Tobacco Use: No Substance Use: Yes Allergies-Medications (Allergen,Severity, Reaction): Coded Allergies: bee venom protein (honey bee) (Unverified Allergy, Severe, SWELLS UP, 02/03) hornet venom (Unverified Allergy, Severe, SWELLS UP, 02/03/17) orange (Unverified Allergy, Severe, SWELLS UP, 02/03/17) peanut (Unverified Allergy, Severe, SWELLS UP, 02/03/17) Reported Meds & Prescriptions Reported Meds & Active Scripts Active Macrobid (Nitrofurantoin Monoh/Nitrofur Macro) 100 Mg Cap 100 Mg PO BID 10 Days Reported Labetalol (Labetalol HCl) 200 Mg Tab 200 Mg PO BID Review of Systems General / Constitutional: No: Fever Eyes: No: Visual changes HENT: No: Headaches Cardiovascular: No: Chest Pain or Discomfort Respiratory: No: Shortness of Breath Gastrointestinal: No: Nausea, Vomiting, Abdominal Pain Genitourinary: Positive: Dysuria, Pelvic Pain, Discharge, No: Urgency, Frequency, Vaginal Bleeding Musculoskeletal: No: Pain Skin: No Rash Neurologic: No: Weakness Psychiatric: No: Depression Endocrine: No: Polydipsia Hematologic/Lymphatic: No: Easy Bruising Physical Exam Narrative GENERAL: NAD, Nontoxic SKIN: Focused skin assessment warm/dry. HEAD: Atraumatic. Normocephalic. EYES: Pupils equal and round. No scleral icterus. No injection or drainage. ENT: No nasal bleeding or discharge. Mucous membranes pink and moist. NECK: Trachea midline. No JVD. CARDIOVASCULAR: Regular rate and rhythm. No murmur appreciated. RESPIRATORY: No accessory muscle use. Clear to auscultation. Breath sounds equal bilaterally. GASTROINTESTINAL: Abdomen soft, mildly tender to suprapubic region of abdomen, nondistended. Hepatic and splenic margins not palpable. : pelvic exam performed with RN at bedside, patient with moderate white vaginal discharge, no cmt or adnexal tenderness MUSCULOSKELETAL: No obvious deformities. No clubbing. No cyanosis. No edema. NEUROLOGICAL: Awake and alert. No obvious cranial nerve deficits. Motor grossly within normal limits. Normal speech. PSYCHIATRIC: Appropriate mood and affect; insight and judgment normal. Data Data Last Documented VS Vital Signs Date Time Temp Pulse Resp B/P Pulse Ox O2 Delivery O2 Flow Rate FiO2 02/05/17 12:44 18 99 Room Air 02/05/17 12:00 98.4 66 114/76 Orders Urinalysis - C+S If Indicated (02/05/17 12:06) Ed Urine Pregnancytest Poc (02/05/17 12:06) Gc And Chlamydia Pcr (02/05/17 12:41) Wet Prep Profile (02/05/17 12:41) Urine Culture (02/05/17 12:20) Azithromycin Powd Pack (Zithromax Powd P (02/05/17 13:15) Lidocaine 1% Inj (50 Ml) (Xylocaine 1% I (02/05/17 13:15) Ceftriaxone Inj (Rocephin Inj) (02/05/17 13:15) Labs Laboratory Tests Test 02/05/17 02/05/17 12:20 13:13 Urine Color YELLOW Urine Turbidity HAZY Urine pH 6.0 Urine Specific [place] 1.026 Urine Protein 30 mg/dL Urine Glucose (UA) NEG mg/dL Urine Ketones NEG mg/dL Urine Occult Blood NEG Urine Nitrite NEG Urine Bilirubin NEG Urine Urobilinogen LESS THAN 2.0 MG/DL Urine Leukocyte Esterase MOD Urine RBC 3 /hpf Urine WBC 9 /hpf Urine Squamous Epithelial 11 /hpf Cells Urine Bacteria OCC /hpf Urine Hyaline Casts 2 /lpf Urine Mucus MANY /lpf Microscopic Urinalysis Comment CULTURE INDICATED Clue Cells (Wet Prep) PRESENT Vaginal Trichomonas (Wet Prep) NONE SEEN Vaginal Yeast (Wet Prep) NONE SEEN MDM Medical Decision Making Medical Screen Exam Complete: Yes Emergency Medical Condition: Yes Interpretation(s) Vital Signs Date Time Temp Pulse Resp B/P Pulse Ox O2 Delivery O2 Flow Rate FiO2 02/05/17 12:39 18 02/05/17 12:00 98.4 66 114/76 99 Differential Diagnosis Differential includes cervicitis, UTI, yeast infection, bacterial vaginosis Narrative Course Patient is a 21 year old female who presents to emergency room with complaints of vaginal discharge and suprapubic pain. Patient nontoxic on her evaluation at this time, patient with no abdominal pain at this time, she does have mild suprapubic tenderness. Plan to obtain UA, urine preg. Will perform pelvic exam to r/o g/c. Vital Signs Date Time Temp Pulse Resp B/P Pulse Ox O2 Delivery O2 Flow Rate FiO2 02/05/17 12:44 18 99 Room Air 02/05/17 12:39 18 02/05/17 12:00 98.4 66 114/76 99 Laboratory Tests Test 02/05/17 12:20 Urine Color YELLOW (YELLW/STRAW) Urine Turbidity HAZY (CLEAR) Urine pH 6.0 (5.0-8.5) Urine Specific [place] 1.026 (1.002-1.035) Urine Protein 30 mg/dL (NEG-TRACE) Urine Glucose (UA) NEG mg/dL (NEG) Urine Ketones NEG mg/dL (NEG) Urine Occult Blood NEG (NEG) Urine Nitrite NEG (NEG) Urine Bilirubin NEG (NEG) Urine Urobilinogen LESS THAN 2.0 MG/DL (LESS THAN 2.0) Urine Leukocyte Esterase MOD (NEG) Urine RBC 3 /hpf (0-3) Urine WBC 9 /hpf (0-5) Urine Squamous Epithelial 11 /hpf (0-5) Cells Urine Bacteria OCC /hpf (NONE) Urine Hyaline Casts 2 /lpf (RARE) Urine Mucus MANY /lpf (OCC) Microscopic Urinalysis Comment CULTURE INDICATED Patient with selin vaginal discharge on exam, patient requested to be treated for possible cervicitis. Patient understands need to follow-up with all cultures from today, if cultures are positive, all sexual partners will need to be treated. Patient will refrain fro sexual intercourse until all cultures have been resulted and all parties treated if necessary Laboratory Tests Test 02/05/17 02/05/17 12:20 13:13 Urine Color YELLOW (YELLW/STRAW) Urine Turbidity HAZY (CLEAR) Urine pH 6.0 (5.0-8.5) Urine Specific [place] 1.026 (1.002-1.035) Urine Protein 30 mg/dL (NEG-TRACE) Urine Glucose (UA) NEG mg/dL (NEG) Urine Ketones NEG mg/dL (NEG) Urine Occult Blood NEG (NEG) Urine Nitrite NEG (NEG) Urine Bilirubin NEG (NEG) Urine Urobilinogen LESS THAN 2.0 MG/DL (LESS THAN 2.0) Urine Leukocyte Esterase MOD (NEG) Urine RBC 3 /hpf (0-3) Urine WBC 9 /hpf (0-5) Urine Squamous Epithelial 11 /hpf (0-5) Cells Urine Bacteria OCC /hpf (NONE) Urine Hyaline Casts 2 /lpf (RARE) Urine Mucus MANY /lpf (OCC) Microscopic Urinalysis Comment CULTURE INDICATED Clue Cells (Wet Prep) PRESENT (NONE) Vaginal Trichomonas (Wet Prep) NONE SEEN (NONE) Vaginal Yeast (Wet Prep) NONE SEEN (NONE) Microbiology Date/Time Procedure Status Source Growth 02/05/17 12:20 Urine Culture Received Urine Clean Catch Pending wet prep pos for clue cells - will treat for bv Diagnosis Primary Impression: UTI (urinary tract infection) Qualified Code: N30.01 - Acute cystitis with hematuria Additional Impressions: Cervicitis Bacterial vaginosis Patient Instructions: General Instructions Additional Instructions: Please follow up with all cultures from today If pelvic cultures are positive, then all sexual partners will need to be treated, refrain from sexual intercourse until all cultures have been resulted, you can call medical records for your lab results Please follow up with your dopster as you will need to have your yearly exam Return to ER as needed or if symptoms worsen or persist. Med/Other Pt SpecificInfo: Prescription(s) given Scripts Metronidazole (Flagyl)500 Mg [id number] Mg PO BID 7 Days Ref 0 Prov:Sara Adair DO 02/05/17 Nitrofurantoin Monohydrate Macrocrystals (Macrobid)100 Mg [id number] Mg PO BID 10 Days Ref 0 Prov:Sara Adair DO 02/05/17 Disposition: 01 DISCHARGE HOME Condition: Stable Sara Adair DO Feb 05, 2017 12:49
[2017-02-05 12:57] LABS: BACTERIA, URINE OCC /hpf; BLOOD, URINE NEG (NEG); COMMENT (UR) CULTURE INDICATED; CULTURE IF INDICATED CULTURE INDICATED; GLUCOSE,URINE NEG (NEG); HYALINE CAST, URINE 2 /lpf (RARE); KETONE, URINE NEG (NEG); MUCUS URINE MANY /lpf (OCC); NITRITE,URINE NEG (NEG); SQUAMOUS EPITHELIAL CELL URINE 11 /hpf (0-5); URINE COLOR YELLOW (YELLW/STRAW)
[2017-02-05] MEDS ORDERED: LIDOCAINE HCL 1% 50 ML VIAL IM ONE (13:15)
[2017-02-05] MEDS ORDERED: AZITHROMYCIN PWD FOR SUSP 1 GM PACKET PO ONE (13:15)
[2017-02-05] MEDS ORDERED: MACR100C2 PO (13:20)
[2017-02-05] MEDS ORDERED: METR-1 PO (13:58)
[2017-02-05 14:10] VITALS: BP 126/89; TEMP 98
[2017-02-05 15:34] LABS: CHLAMYDIA PCR DETECTED (NOT DETECT); NEISSERIA PCR NOT DETECTED (NOT DETECT)
== END 2017-02-05 14:45 | disposition home or self-care (01) ==
LOC: NEPD 11:58
DX: N39.0 Urinary tract infection, site not specified (principal); N72 Inflammatory disease of cervix uteri; N76.0 Acute vaginitis; B96.20 Unspecified Escherichia coli [E. coli] as the cause of diseases classified elsewhere; J45.909 Unspecified asthma, uncomplicated; I10 Essential (primary) hypertension; F41.9 Anxiety disorder, unspecified; F32.9 Major depressive disorder, single episode, unspecified; Z79.899 Other long term (current) drug therapy
CPT/HCPCS: 81001; 84703; 87077; 87086; 87186; 87210; 87491; 87591; 96372; 99284; J0696

== ENCOUNTER 2017-05-09 22:04 | Emergency (ER) | payer MEDICAID ==
[~2017-05-09] VITALS: Ht 154.9 cm; Wt 52.0 kg
[~2017-05-09 22:04] MED LIST changes: +CLOT1CRE6 TOPICAL; +MACR100C2 PO; +METR-1 PO
[2017-05-09 22:15] VITALS: BP 133/85; PULSE 100; RESP 15; TEMP 98.4; O2SAT 96
--- NOTE | 2017-05-09 22:23 | PD ---
HPI Chief Complaint: Seizure Time Seen by Provider: 22:17 Travel History International Travel<30 days: No Contact w/Intl Traveler<30days: No Traveled to known affect area: No History of Present Illness HPI 21-year-old female patient with previous history of seizure, not currently on any medications, does not have a neurologist, presents to the ER today brought in by EMS because she had what was thought to be a seizure episode at work. She works at [employer] and was making a sandwich when she states that she became dizzy, and coworker states that she went down to the floor, had seizure-like activity. According to EMS, she did not have a very significant amount of post ictal period, was awake and able to answer questions pretty soon after the episode. She complains currently of back pain. There was no incontinence. She denies any other injuries. Modifying Factors: None Associated Signs & Symptoms: Seizure Risk Factors: Previous history 1 seizure PFSH Past Medical History Hx Anticoagulant Therapy: No ADHD: No Asthma: Yes Blood Disorders: No Anxiety: Yes Depression: Yes Cardiovascular Problems: Yes (HTN) Chemotherapy: No Cerebrovascular Accident: No Diabetes: No Diminished Hearing: No Hypertension: Yes Respiratory: Yes (ASTHMA) Immunizations Current: Yes Seizures: No : 2 Para: 2 Past Surgical History Section: Yes (x1) Hysterectomy: No Other Surgery: No Social History Alcohol Use: No Tobacco Use: No Substance Use: Yes Allergies-Medications (Allergen,Severity, Reaction): Coded Allergies: bee venom protein (honey bee) (Unverified Allergy, Severe, SWELLS UP, ) hornet venom (Unverified Allergy, Severe, SWELLS UP, 05/09/17) orange (Unverified Allergy, Severe, SWELLS UP, 05/09/17) peanut (Unverified Allergy, Severe, SWELLS UP, 05/09/17) Reported Meds & Prescriptions Reported Meds & Active Scripts Active Reported Labetalol (Labetalol HCl) 200 Mg Tab 200 Mg PO BID Review of Systems Except as stated in HPI: all other systems reviewed are Neg Physical Exam Narrative GENERAL: Young -Citizen Of [place] female patient currently in no acute distress. Awake and oriented 3. In c-collar and backboard. SKIN: Focused skin assessment warm/dry. HEAD: Atraumatic. Normocephalic. EYES: Pupils equal and round. No scleral icterus. No injection or drainage. ENT: No nasal bleeding or discharge. Mucous membranes pink and moist. NECK: Trachea midline. No JVD. In c-collar. CARDIOVASCULAR: Regular rate and rhythm. No murmur appreciated. RESPIRATORY: No accessory muscle use. Clear to auscultation. Breath sounds equal bilaterally. GASTROINTESTINAL: Abdomen soft, non-tender, nondistended. Hepatic and splenic margins not palpable. BACK: No CVA tenderness. No rash. Mild tenderness to palpation at the T12 midline area without deformities on palpation of the spine. MUSCULOSKELETAL: No obvious deformities. No clubbing. No cyanosis. No edema. NEUROLOGICAL: Awake and alert. No obvious cranial nerve deficits. Motor grossly within normal limits. Normal speech. PSYCHIATRIC: Appropriate mood and affect; insight and judgment normal. Data Data Last Documented VS Vital Signs Date Time Temp Pulse Resp B/P (MAP) Pulse Ox O2 Delivery O2 Flow Rate FiO2 05/09/17 23:38 97 Room Air 05/09/17 22:22 99 15 05/09/17 22:15 98.4 133/85 (101) Orders Orders Complete Blood Count With Diff (05/09/17 22:17) Drug Screen, Random Urine (05/09/17 22:17) Electrocardiogram (05/09/17 ) Ct Brain W/O Iv Contrast(Rout) (05/09/17 ) Blood Glucose (05/09/17 22:17) Ecg Monitoring (05/09/17 22:17) Iv Access Insert/Monitor (05/09/17 22:17) Oximetry (05/09/17 22:17) Comprehensive Metabolic Panel (05/09/17 22:17) Sodium Chloride 0.9% Flush (Ns Flush) (05/09/17 22:30) Ua Includes Microscopic (05/09/17 22:17) Ed Urine Pregnancytest Poc (05/09/17 22:17) Ct Cerv Spine W/O Contrast (05/09/17 22:17) Ct Thor Spine W/O Contrast (05/09/17 22:17) Ct Lumb Spine W/O Contrast (05/09/17 22:17) Ondansetron Inj (Zofran Inj) (05/10/17 00:00) Labs Laboratory Tests Test 05/09/17 22:30 05/09/17 23:35 White Blood Count 7.8 TH/MM3 Red Blood Count 4.29 MIL/MM3 Hemoglobin 11.4 GM/DL Hematocrit 35.2 % Mean Corpuscular Volume 82.2 FL Mean Corpuscular Hemoglobin 26.7 PG Mean Corpuscular Hemoglobin Concent 32.5 % Red Cell Distribution Width 13.8 % Platelet Count 262 TH/MM3 Mean Platelet Volume 7.7 FL Neutrophils (%) (Auto) 57.0 % Lymphocytes (%) (Auto) 32.1 % Monocytes (%) (Auto) 9.5 % Eosinophils (%) (Auto) 1.1 % Basophils (%) (Auto) 0.3 % Neutrophils # (Auto) 4.4 TH/MM3 Lymphocytes # (Auto) 2.5 TH/MM3 Monocytes # (Auto) 0.7 TH/MM3 Eosinophils # (Auto) 0.1 TH/MM3 Basophils # (Auto) 0.0 TH/MM3 CBC Comment DIFF FINAL Differential Comment Blood Urea Nitrogen 8 MG/DL Creatinine 0.82 MG/DL Random Glucose 85 MG/DL Total Protein 7.5 GM/DL Albumin 4.0 GM/DL Calcium Level 8.6 MG/DL Alkaline Phosphatase 54 U/L Aspartate Amino Transf (AST/SGOT) 11 U/L Alanine Aminotransferase (ALT/SGPT) 18 U/L Total Bilirubin 0.2 MG/DL Sodium Level 139 MEQ/L Potassium Level 3.4 MEQ/L Chloride Level 108 MEQ/L Carbon Dioxide Level 21.2 MEQ/L Anion Gap 10 MEQ/L Estimat Glomerular Filtration Rate 105 ML/MIN Urine Opiates Screen NEG Urine Barbiturates Screen NEG Urine Amphetamines Screen NEG Urine Benzodiazepines Screen NEG Urine Cocaine Screen NEG Urine Cannabinoids Screen NEG MDM Medical Decision Making Medical Screen Exam Complete: Yes Emergency Medical Condition: Yes Medical Record Reviewed: Yes Interpretation(s) Laboratory Tests Test 05/09/17 22:30 05/09/17 23:35 Hemoglobin 11.4 GM/DL (11.6-15.3) Mean Corpuscular Hemoglobin 26.7 PG (27.0-34.0) Monocytes (%) (Auto) 9.5 % (0.0-8.0) Aspartate Amino Transf (AST/SGOT) 11 U/L (15-37) Potassium Level 3.4 MEQ/L (3.5-5.1) Chloride Level 108 MEQ/L (98-107) Differential Diagnosis Seizure versus syncope, rule out metabolic issues versus dehydration versus intracranial acute processes versus fractures Narrative Course EKG did not show any signs of significant dysrhythmias. CT of the brain, C- spine, T-spine, L-spine did not show any signs of acute injuries. She is not . Metabolic panel was fairly unremarkable. Patient was not having a post ictal period, and I'm wondering if maybe this is a syncopal episode rather than seizures. At this point, my plan would be to release her with follow-up to urology. She is awake, alert, oriented 3. Return for any worsening in symptoms as necessary. The plan has been discussed with her and she states understanding. Diagnosis Primary Impression: Syncope Referrals: Yonas Mehta MD Disposition: 01 DISCHARGE HOME Condition: Stable Sylvia Reis MD May 09, 2017 22:23
[2017-05-09] MEDS ORDERED: SODIUM CHLORIDE 0.9% FLUSH 10 ML FLUSH IVF PRN (22:30)
[2017-05-09 22:40] LABS: AUTOMATED NEUTROPHIL # 4.4 TH/MM3 (1.8-7.7); BASOPHIL % 0.3 % (0.0-2.0); EOSINOPHIL # 0.1 TH/MM3 (0-0.4); EOSINOPHIL % 1.1 % (0.0-4.0); HEMATOCRIT 35.2 % (35.0-46.0); HEMO FLAGS DIFF FINAL; LYMPH % 32.1 % (9.0-44.0); LYMPHOCYTE # 2.5 TH/MM3 (1.0-4.8); MEAN CELL VOLUME 82.2 FL (80.0-100.0); MEAN CORPUSCULAR HEMOGLOBIN 26.7 PG (27.0-34.0); MEAN CORPUSCULAR HGB CONC 32.5 % (32.0-36.0); MONO % 9.5 % (0.0-8.0); PLATELET COUNT 262 TH/MM3 (150-450); RED BLOOD COUNT 4.29 MIL/MM3 (4.00-5.30); RED CELL DISTRIBUTION WIDTH 13.8 % (11.6-17.2); WHITE BLOOD COUNT 7.8 TH/MM3 (4.0-11.0)
[2017-05-09 23:01] LABS: ALT (GPT) 18 U/L (10-53); ANION GAP 10 MEQ/L (5-15); AST (GOT) 11 U/L (15-37); BICARBONATE 21.2 MEQ/L (21.0-32.0); BLOOD UREA NITROGEN 8 MG/DL (7-18); CHLORIDE 108 MEQ/L (98-107); GLOMERULAR FILTRATION RATE 105 ML/MIN (>89); POTASSIUM 3.4 MEQ/L (3.5-5.1); SODIUM (NA) 139 MEQ/L (136-145)
[2017-05-09 23:03] LABS: ALKALINE PHOSPHATASE 54 U/L (45-117); TOTAL BILIRUBIN ADULT 0.2 MG/DL (0.2-1.0)
[2017-05-09 23:38] VITALS: O2SAT 97
--- NOTE | 2017-05-09 23:59 | RADRPT ---
EXAM DATE/TIME: 05/09/2017 23:41 [facility] COMPARISON: No previous studies available for comparison. INDICATIONS : Trauma; possible seizure. RADIATION DOSE: 55.75 CTDIvol (mGy) MEDICAL HISTORY : Hypertension. Asthma SURGICAL HISTORY : None. ENCOUNTER: Initial ACUITY: 1 day PAIN SCALE: 2/10 LOCATION: cranial TECHNIQUE: Multiple contiguous axial images were obtained of the head. Using automated exposure control and adj ustment of the mA and/or kV according to patient size, radiation dose was kept as low as reasonably a chievable to obtain optimal diagnostic quality images. DICOM format image data is available electro nically for review and comparison. FINDINGS: CEREBRUM: The ventricles are normal for age. No evidence of midline shift, mass lesion, hemorrhage or acute in farction. No extra-axial fluid collections are seen. POSTERIOR FOSSA: The cerebellum and brainstem are intact. The 4th ventricle is midline. The cerebellopontine angle i s unremarkable. EXTRACRANIAL: The visualized portion of the orbits is intact. SKULL: The calvaria is intact. No evidence of skull fracture. CONCLUSION: Negative noncontrast CT brain. Moncho Wells MD on May 09, 2017 at 23:56 Board Certified Radiologist. This report was verified electronically.
[2017-05-10] MEDS ORDERED: ONDANSETRON HCL 4 MG/2 ML VIAL IV PUSH ONE
--- NOTE | 2017-05-10 00:02 | RADRPT ---
EXAM DATE/TIME: 05/09/2017 23:41 [facility] COMPARISON: No previous studies available for comparison. INDICATIONS : Trauma; possible seizure. RADIATION DOSE: 21.19 CTDIvol (mGy) MEDICAL HISTORY : Hypertension. Asthma SURGICAL HISTORY : None. ENCOUNTER: Initial ACUITY: 1 day PAIN SCALE: 2/10 LOCATION: neck TECHNIQUE: Volumetric scanning of the cervical spine was performed. Multiplanar reconstructions in the sagittal, coronal and oblique axial planes were performed. Using automated exposure control and adjustment o f the mA and/or kV according to patient size, radiation dose was kept as low as reasonably achievable to obtain optimal diagnostic quality images. DICOM format image data is available electronically f or review and comparison. FINDINGS: VERTEBRAE: Normal vertebral body height. The atlantoaxial articulation is intact. ALIGNMENT: No evidence of subluxation. C2-C3: No fracture seen. The bony neural foramina patent. C3-C4: No fracture seen. The bony neural foramina patent. C4-C5: No fracture seen. The bony neural foramina patent. C5-C6: No fracture seen. The bony neural foramina patent. C6-C7: No fracture seen. The bony neural foramina patent. C7-T1: No fracture seen. The bony neural foramina patent. CONCLUSION: Negative CT cervical spine.. Moncho Wells MD on May 09, 2017 at 23:59 Board Certified Radiologist. This report was verified electronically.
--- NOTE | 2017-05-10 00:04 | RADRPT ---
EXAM DATE/TIME: 05/09/2017 23:46 [facility] COMPARISON: No previous studies available for comparison. INDICATIONS : Trauma; possible seizure. RADIATION DOSE: 27.11 CTDIvol (mGy) ; Combined studies - Thoracic Spine/Lumbar Spine MEDICAL HISTORY : Hypertension. Asthma SURGICAL HISTORY : None. ENCOUNTER: Initial ACUITY: 1 day PAIN SCALE: 2/10 LOCATION: lower back TECHNIQUE: Volumetric scanning of the lumbar spine was performed. Multiplanar reconstructions in the sagittal, coronal and oblique axial planes were performed. Using automated exposure control and adjustment of the mA and/or kV according to patient size, radiation dose was kept as low as reasonably achievable t o obtain optimal diagnostic quality images. DICOM format image data is available electronically for review and comparison. FINDINGS: VERTEBRAE: Normal vertebral body height. Transverse processes, spinous processes, and facet joints are intact. ALIGNMENT: No evidence of subluxation. T12-L1: The thecal sac has a normal diameter. No evidence of disc bulge or protrusion. The neural foramina are patent bilaterally. L1-L2: The thecal sac has a normal diameter. No evidence of disc bulge or protrusion. The neural foramina are patent bilaterally. L2-L3: The thecal sac has a normal diameter. No evidence of disc bulge or protrusion. The neural foramina are patent bilaterally. L3-L4: The thecal sac has a normal diameter. No evidence of disc bulge or protrusion. The neural foramina are patent bilaterally. L4-L5: The thecal sac has a normal diameter. No evidence of disc bulge or protrusion. The neural foramina are patent bilaterally. L5-S1: The thecal sac has a normal diameter. No evidence of disc bulge or protrusion. The neural foramina are patent bilaterally. CONCLUSION: Negative CT lumbar spine. Moncho Wells MD on May 10, 2017 at 0:01 Board Certified Radiologist. This report was verified electronically.
[2017-05-10 00:20] LABS: BLOOD, URINE NEG (NEG); GLUCOSE,URINE NEG (NEG); KETONE, URINE NEG (NEG); NITRITE,URINE NEG (NEG); URINE COLOR LIGHT-YELLOW (YELLW/STRAW)
--- NOTE | 2017-05-10 00:20 | RADRPT ---
EXAM DATE/TIME: 05/09/2017 23:46 [facility] COMPARISON: No previous studies available for comparison. INDICATIONS : Trauma; possible seizure. RADIATION DOSE: 27.11 CTDIvol (mGy) ; Combined studies - Thoracic Spine/Lumbar Spine MEDICAL HISTORY : Hypertension. Asthma SURGICAL HISTORY : None. ENCOUNTER: Initial ACUITY: 1 day PAIN SCALE: 2/10 LOCATION: upper back TECHNIQUE: Volumetric scanning of the thoracic spine was performed. Multiplanar reconstructions in the sagittal , coronal and oblique axial planes were performed. Using automated exposure control and adjustment o f the mA and/or kV according to patient size, radiation dose was kept as low as reasonably achievable to obtain optimal diagnostic quality images. DICOM format image data is available electronically f or review and comparison. FINDINGS: There is normal alignment of the vertebral bodies of the thoracic spine, maintenance of vertebral bod y height, and intact posterior elements. No fracture seen. No significant epidural impressions seen . CONCLUSION: Negative CT thoracic spine. Moncho Wells MD on May 10, 2017 at 0:17 Board Certified Radiologist. This report was verified electronically.
[2017-05-10 00:45] LABS: BACTERIA, URINE OCC /hpf; SQUAMOUS EPITHELIAL CELL URINE > 8 /hpf (0-5); WBC, URINE 0-2 /hpf (0-5)
--- NOTE | 2017-05-10 12:50 | EKG ---
Date Performed: 05/10/2017 Time Performed: 00:00:36 PTAGE: 21 years EKG: Sinus rhythm WITH SINUS ARRHYTHMIA Compared to prior tracing no significant change NORMAL ECG PREVIOUS TRACING : 09/29/16 @ 2153 DOCTOR: Yonas August Interpretating Date/Time 05/10/2017 12:48:23
== END 2017-05-10 03:30 | disposition home or self-care (01) ==
LOC: NEPC 22:04 → UNDOADMOB 23:58 → NEDA 23:58 → NEPC 05-10 03:30
DX: R55 Syncope and collapse (principal)
CPT/HCPCS: 70450; 72125; 72128; 72131; 80053; 80307; 81001; 84703; 85025; 93005; 96374; 99285; J2405

== ENCOUNTER 2017-06-16 20:13 | Emergency (ER) | payer MEDICAID ==
[~2017-06-16 20:13] MED LIST changes: -CLOT1CRE6 TOPICAL; -MACR100C2 PO; -METR-1 PO
[2017-06-16 20:16] VITALS: BP 129/86; PULSE 89; RESP 16; TEMP 98.2; O2SAT 100
[2017-06-16] MEDS ORDERED: [UNRECOGNIZED DRUG - REMARK] (20:25)
[2017-06-16 21:03] VITALS: BP_SYST 117; BP_SYST 132; BP_DIAS 76; BP_DIAS 82; RESP 18
[2017-06-16 21:16] LABS: AUTOMATED NEUTROPHIL # 6.6 TH/MM3 (1.8-7.7); BASOPHIL % 0.4 % (0.0-2.0); EOSINOPHIL # 0.1 TH/MM3 (0-0.4); EOSINOPHIL % 1.4 % (0.0-4.0); HEMATOCRIT 34.8 % (35.0-46.0); HEMOGLOBIN 11.1 GM/DL (11.6-15.3); LYMPH % 21.2 % (9.0-44.0); MEAN CELL VOLUME 82.6 FL (80.0-100.0); MEAN CORPUSCULAR HEMOGLOBIN 26.4 PG (27.0-34.0); MEAN PLATELET VOLUME 7.3 FL (7.0-11.0); MONO % 6.1 % (0.0-8.0); MONOCYTE # 0.6 TH/MM3 (0-0.9); NEUT % 70.9 % (16.0-70.0); PLATELET COUNT 277 TH/MM3 (150-450); RED BLOOD COUNT 4.21 MIL/MM3 (4.00-5.30); RED CELL DISTRIBUTION WIDTH 13.7 % (11.6-17.2); WHITE BLOOD COUNT 9.4 TH/MM3 (4.0-11.0)
[2017-06-16] MEDS ORDERED: SODIUM CHLOR 0.9% 1000 ML INJ 1,000 ML IV ONE (21:30)
[2017-06-16 21:39] LABS: BICARBONATE 25.6 MEQ/L (21.0-32.0); CALCIUM 8.8 MG/DL (8.5-10.1); CREATININE 0.93 MG/DL (0.50-1.00)
--- NOTE | 2017-06-16 21:45 | PD ---
HPI . Lightheaded Chief Complaint: Dizziness Time Seen by Provider: 20:32 Travel History International Travel<30 days: No Contact w/Intl Traveler<30days: No Traveled to known affect area: No History of Present Illness HPI Patient presents with a two-week history of intermittent lightheadedness. Symptoms are exacerbated by standing. She reports no associated symptoms. She specifically denies any vomiting, diarrhea, normal bleeding. She reports normal urine output. Symptoms are mild. PFSH Past Medical History Hx Anticoagulant Therapy: No ADHD: No Anemia: Yes Asthma: Yes Blood Disorders: No Bipolar Disorder: Yes Anxiety: Yes Depression: Yes Cardiovascular Problems: Yes (HTN) Chemotherapy: No Cerebrovascular Accident: No Diabetes: No Diminished Hearing: No Hypertension: Yes Respiratory: Yes (ASTHMA) Immunizations Current: Yes Seizures: No Tetanus Vaccination: < 5 Years Influenza Vaccination: No ?: Not LMP: 06/10/17 : 2 Para: 2 Past Surgical History Section: Yes (x1) Hysterectomy: No Other Surgery: No Social History Alcohol Use: No Tobacco Use: No Substance Use: No Allergies-Medications (Allergen,Severity, Reaction): Coded Allergies: bee venom protein (honey bee) (Unverified Allergy, Severe, SWELLS UP, ) hornet venom (Unverified Allergy, Severe, SWELLS UP, 06/16/17) orange (Unverified Allergy, Severe, SWELLS UP, 06/16/17) peanut (Unverified Allergy, Severe, SWELLS UP, 06/16/17) Reported Meds & Prescriptions Reported Meds & Active Scripts Active Reported [unk bipolar med] Labetalol (Labetalol HCl) 200 Mg Tab 200 Mg PO BID Review of Systems Except as stated in HPI: all other systems reviewed are Neg General / Constitutional: No: Fever, Chills Eyes: No: Blurred Vision HENT: Positive: Lightheadedness Cardiovascular: No: Chest Pain or Discomfort Respiratory: No: Shortness of Breath Gastrointestinal: No: Nausea, Vomiting, Diarrhea, Abdominal Pain Genitourinary: No: Decreased Urinary Output Physical Exam Narrative GENERAL: Healthy-appearing young woman in no distress. SKIN: warm/dry. Normal turgor. HEAD: Normocephalic. Atraumatic. EYES: Pupils equal and round. No scleral icterus. No injection or drainage. ENT: No nasal bleeding or discharge. Mucous membranes pink and moist. NECK: Trachea midline. Full range of motion without pain.. CARDIOVASCULAR: Regular rate and rhythm. RESPIRATORY: No accessory muscle use. Clear to auscultation. Breath sounds equal bilaterally. GASTROINTESTINAL: Abdomen soft. Nontender. Bowel sounds present. Nondistended. MUSCULOSKELETAL: No obvious deformities. NEUROLOGICAL: Awake and alert. No obvious cranial nerve deficits. Motor grossly within normal limits. Normal speech. PSYCHIATRIC: Appropriate mood and affect; insight and judgment normal. Data Data Last Documented VS Vital Signs Date Time Temp Pulse Resp B/P (MAP) Pulse Ox O2 Delivery O2 Flow Rate FiO2 06/16/17 21:03 94 18 117/76 (90) 105 18 117/79 (92) 110 18 132/82 (99) 06/16/17 20:16 98.2 100 Orders Orders Ed Urine Pregnancytest Poc (06/16/17 20:32) Orthostatic Vital Signs (06/16/17 20:32) Complete Blood Count With Diff (06/16/17 20:32) Basic Metabolic Panel (Bmp) (06/16/17 20:32) Sodium Chlor 0.9% 1000 Ml Inj (Ns 1000 M (06/16/17 21:30) Labs Laboratory Tests Test 06/16/17 20:40 White Blood Count 9.4 TH/MM3 Red Blood Count 4.21 MIL/MM3 Hemoglobin 11.1 GM/DL Hematocrit 34.8 % Mean Corpuscular Volume 82.6 FL Mean Corpuscular Hemoglobin 26.4 PG Mean Corpuscular Hemoglobin Concent 32.0 % Red Cell Distribution Width 13.7 % Platelet Count 277 TH/MM3 Mean Platelet Volume 7.3 FL Neutrophils (%) (Auto) 70.9 % Lymphocytes (%) (Auto) 21.2 % Monocytes (%) (Auto) 6.1 % Eosinophils (%) (Auto) 1.4 % Basophils (%) (Auto) 0.4 % Neutrophils # (Auto) 6.6 TH/MM3 Lymphocytes # (Auto) 2.0 TH/MM3 Monocytes # (Auto) 0.6 TH/MM3 Eosinophils # (Auto) 0.1 TH/MM3 Basophils # (Auto) 0.0 TH/MM3 CBC Comment DIFF FINAL Differential Comment Blood Urea Nitrogen 14 MG/DL Creatinine 0.93 MG/DL Random Glucose 77 MG/DL Calcium Level 8.8 MG/DL Sodium Level 140 MEQ/L Potassium Level 3.6 MEQ/L Chloride Level 106 MEQ/L Carbon Dioxide Level 25.6 MEQ/L Anion Gap 8 MEQ/L Estimat Glomerular Filtration Rate 91 ML/MIN MDM Medical Decision Making Medical Screen Exam Complete: Yes Emergency Medical Condition: Yes Differential Diagnosis Differential diagnosis of dizziness includes but is not limited to vertigo, dehydration, acute blood loss, sepsis, ACS Narrative Course This patient presents with a 2 week history of feeling lightheaded especially on standing Orthostatic vital signs are positive in that her heart rate goes from 94 lying to 110 standing. Blood pressure is stable. She will be given a liter of fluid. test is negative. CBC & BMP Diagram 06/16/17 20:40 Calcium Level 8.8 This patient will be discharged with instructions to increase her fluid intake. Diagnosis Primary Impression: Lightheadedness Patient Instructions: Dehydration (DC), General Instructions Additional Instructions: Increase your fluids. Disposition: 01 DISCHARGE HOME Condition: Stable Clarice Palomino MD Jun 16, 2017 21:45
== END 2017-06-16 22:08 | disposition home or self-care (01) ==
LOC: NEPD 20:13
DX: R42 Dizziness and giddiness (principal); I10 Essential (primary) hypertension; F31.9 Bipolar disorder, unspecified
CPT/HCPCS: 80048; 84703; 85025; 99283; J7030

== ENCOUNTER 2017-07-10 14:26 | Emergency (ER) | payer SELFPAY ==
[~2017-07-10] VITALS: Ht 154.9 cm; Wt 52.5 kg
[~2017-07-10 14:26] MED LIST changes: +[UNRECOGNIZED DRUG - REMARK]
[2017-07-10 14:29] VITALS: BP 118/80; PULSE 107; RESP 16; TEMP 99.2; O2SAT 99
[2017-07-10] MEDS ORDERED: IBUP1TAB7 PO (15:38)
[2017-07-10] MEDS ORDERED: AMOX875T PO (15:38)
--- NOTE | 2017-07-10 15:38 | PD ---
HPI Chief Complaint: Cold / Flu Symptoms Time Seen by Provider: 15:15 Travel History International Travel<30 days: No Contact w/Intl Traveler<30days: No Traveled to known affect area: No History of Present Illness HPI Patient is a 21-year-old female presenting to emergency department evaluation of sore throat, nasal congestion, headache, body aches, cough. Patient states her symptoms started 3 days ago, she has not taken any medications to alleviate the pain. She states her symptoms are gradually. She denies any nausea, vomiting, abdominal pain, chest pain. She does report a history of asthma but denies any wheezing or shortness of breath. Patient states it is sore to swallow, she rates her pain a 5 out of 10. She denies any dysphasia. PFSH Past Medical History Anemia: Yes Asthma: Yes Bipolar Disorder: Yes Anxiety: Yes Depression: Yes Cardiovascular Problems: Yes (HTN) Hypertension: Yes Respiratory: Yes (ASTHMA) Immunizations Current: Yes Seizures: No ?: Unknown LMP: 07/03/17 : 2 Para: 2 Past Surgical History Section: Yes (x1) Hysterectomy: No Other Surgery: No Social History Alcohol Use: No Tobacco Use: No Substance Use: No Allergies-Medications (Allergen,Severity, Reaction): Coded Allergies: bee venom protein (honey bee) (Unverified Allergy, Severe, SWELLS UP, ) hornet venom (Unverified Allergy, Severe, SWELLS UP, 06/16/17) orange (Unverified Allergy, Severe, SWELLS UP, 06/16/17) peanut (Unverified Allergy, Severe, SWELLS UP, 06/16/17) Reported Meds & Prescriptions Reported Meds & Active Scripts Active Reported [unk bipolar med] Labetalol (Labetalol HCl) 200 Mg Tab 200 Mg PO BID Review of Systems Except as stated in HPI: all other systems reviewed are Neg General / Constitutional: Positive: Chills HENT: Positive: Headaches, Sore Throat, Rhinitis, Congestion Cardiovascular: No: Chest Pain or Discomfort Respiratory: Positive: Cough, No: Shortness of Breath, Wheezing Gastrointestinal: No: Nausea, Vomiting, Abdominal Pain Musculoskeletal: Positive: Myalgias Physical Exam Narrative GENERAL: Well-developed, well-nourished, alert female. Resting comfortably in no acute distress. SKIN: Warm and dry. HEAD: Atraumatic. Normocephalic. EYES: Pupils equal and round. No scleral icterus. No injection or drainage. ENT: No nasal bleeding or discharge. Mucous membranes pink and moist. Posterior parents cobblestone appearance. 1+ tonsillar hypertrophy, tonsils are erythematous and there is exudate noted to the left tonsil. Airway is patent. NECK: Trachea midline. No JVD. CARDIOVASCULAR: Mildly tachycardic. RESPIRATORY: No accessory muscle use. Clear to auscultation. Breath sounds equal bilaterally. No wheezes, rhonchi, rales noted. GASTROINTESTINAL: Abdomen soft, non-tender, nondistended. Hepatic and splenic margins not palpable. MUSCULOSKELETAL: Extremities without clubbing, cyanosis, or edema. No obvious deformities. NEUROLOGICAL: Awake and alert. No obvious cranial nerve deficits. Motor grossly within normal limits. Five out of 5 muscle strength in the arms and legs. Normal speech. PSYCHIATRIC: Appropriate mood and affect; insight and judgment normal. Data Data Last Documented VS Vital Signs Date Time Temp Pulse Resp B/P (MAP) Pulse Ox O2 Delivery O2 Flow Rate FiO2 18 14:29 99.2 107 16 118/80 (93) 99 [facility] Medical Decision Making Medical Screen Exam Complete: Yes Emergency Medical Condition: Yes Interpretation(s) Vital Signs Date Time Temp Pulse Resp B/P (MAP) Pulse Ox O2 Delivery O2 Flow Rate FiO2 18 14:29 99.2 107 16 118/80 (93) 99 Differential Diagnosis Viral URI versus pharyngitis versus asthma exacerbation versus bronchitis versus influenza versus other Narrative Course Patient is a 21-year-old female that presented to emergency department for evaluation of cold and flu symptoms that started 3 days ago. Initial vital signs showed a mild tachycardia. Patient is in no distress. Likely heart rate was elevated due to persistent coughing. Patient has exudate noted to the left tonsil as well as tonsillar hypertrophy with erythema. Symptoms are likely viral in nature, will provide a prescription for an antibiotic. She was encouraged to continue symptom management. She has not medicated herself prior to this point. She was encouraged to follow-up with her primary doctor return to emergency department for any new or worsening symptoms. Patient verbalized understanding of instructions. Patient stable for discharge. Diagnosis Primary Impression: Viral URI with cough Additional Impression: Pharyngitis Qualified Codes: J02.8 - Acute pharyngitis due to other specified organisms Referrals: Primary Care Physician Patient Instructions: General Instructions, Pharyngitis (ED), Viral Syndrome ( DC) Departure Forms: Tests/Procedures, Work Release Enter return to work date: Jul 13, 2017 Special Instructions: May return to work sooner if improved. Additional Instructions: Follow-up with her primary doctor Continue symptom management Maintain adequate fluid intake Rest Take medications as directed Return to emergency department for any new or worsening symptoms Med/Other Pt SpecificInfo: Prescription(s) given Scripts Ibuprofen (Ibuprofen) 800 Mg Tab 800 MG PO Q6HR Y for PAIN, #40 TAB 0 Refills Prov: Nora Chow 07/10/17 Amoxicillin (Amoxicillin) 875 Mg Tab 875 MG PO BID for Infection for 10 Days, #20 TAB 0 Refills Prov: Nora Chow 07/10/17 Disposition: 01 DISCHARGE HOME Condition: Stable Nora Chow Jul 10, 2017 15:38
== END 2017-07-10 15:52 | disposition home or self-care (01) ==
LOC: NEPK 14:26
DX: J06.9 Acute upper respiratory infection, unspecified (principal); J02.8 Acute pharyngitis due to other specified organisms; B97.89 Other viral agents as the cause of diseases classified elsewhere; R05 Cough; R51 Headache; M79.1 Myalgia; F31.9 Bipolar disorder, unspecified; I10 Essential (primary) hypertension; Z86.2 Personal history of diseases of the blood and blood-forming organs and certain disorders involving the immune mechanism; Z86.59 Personal history of other mental and behavioral disorders; Z87.09 Personal history of other diseases of the respiratory system
CPT/HCPCS: 99283

== ENCOUNTER 2017-10-27 17:56 | Emergency (ER) | payer MEDICAID, OTHER ==
[~2017-10-27] VITALS: Ht 154.9 cm; Wt 58.0 kg
[~2017-10-27 17:56] MED LIST changes: +AMOX875T PO; +IBUP1TAB7 PO
[2017-10-27 17:59] VITALS: BP 110/69; PULSE 103; RESP 18; TEMP 97.5; O2SAT 100
--- NOTE | 2017-10-27 19:00 | PD ---
HPI Chief Complaint: ENT Complaint Time Seen by Provider: 18:27 Travel History International Travel<30 days: No Contact w/Intl Traveler<30days: No Traveled to known affect area: No History of Present Illness HPI 21 year-old female presents to the emergency room for evaluation of severe sore throat for the past 3 days. Pain is severe, worsened with eating, drinking, or speaking. Radiates into her neck. She has associated chills, body aches, and night sweats but denies any cough, congestion, or earache. She has not taken anything for her symptoms. Patient is but she does not know how far along she is. Her last menstrual cycle was "probably 3 months ago. " She is not taking vitamins. She denies any vaginal bleeding or abdominal cramping. PFSH Past Medical History ADHD: No Anemia: Yes Asthma: Yes Blood Disorders: No Bipolar Disorder: Yes Anxiety: Yes Depression: Yes Cardiovascular Problems: Yes (HTN) Chemotherapy: No Cerebrovascular Accident: No Diabetes: No Diminished Hearing: No Hypertension: Yes Respiratory: Yes (ASTHMA) Immunizations Current: Yes Seizures: No ?: : 2 Para: 2 Past Surgical History Section: Yes (x1) Hysterectomy: No Other Surgery: No Social History Alcohol Use: No Tobacco Use: No Substance Use: No Allergies-Medications (Allergen,Severity, Reaction): Coded Allergies: bee venom protein (honey bee) (Unverified Allergy, Severe, SWELLS UP, ) hornet venom (Unverified Allergy, Severe, SWELLS UP, 10/27/17) orange (Unverified Allergy, Severe, SWELLS UP, 10/27/17) peanut (Unverified Allergy, Severe, SWELLS UP, 10/27/17) Reported Meds & Prescriptions Reported Meds & Active Scripts Active Amoxicillin 500 Mg Tab 500 Mg PO BID 10 Days Ibuprofen 800 Mg Tab 800 Mg PO Q6HR PRN Amoxicillin 875 Mg Tab 875 Mg PO BID 10 Days Reported [unk bipolar med] Labetalol (Labetalol HCl) 200 Mg Tab 200 Mg PO BID Review of Systems Except as stated in HPI: all other systems reviewed are Neg Physical Exam Narrative GENERAL: Well-nourished, well-developed female no acute distress. Afebrile. Ambulatory. SKIN: Focused skin assessment warm/dry. HEAD: Normocephalic. EYES: No scleral icterus. No injection or drainage. NECK: Supple, trachea midline. No JVD or lymphadenopathy. ENT: Mucosa pink and moist. Significant erythema with bilateral exudates. Tonsils 2+ and equal. No uvular edema. No uvular, palatal, or tonsillar deviation. Airway patent. Nasal turbinates appear normal without nasal blood, purulent drainage or septal hematoma. CARDIOVASCULAR: Regular rate and rhythm without murmurs, gallops, or rubs. RESPIRATORY: Breath sounds equal bilaterally. No accessory muscle use. Data Data Last Documented VS Vital Signs Date Time Temp Pulse Resp B/P (MAP) Pulse Ox O2 Delivery O2 Flow Rate FiO2 10/27/17 17:59 97.5 103 18 110/69 (83) 100 Orders Orders Group A Rapid Strep Screen (10/27/17 18:07) [facility] Medical Decision Making Medical Screen Exam Complete: Yes Emergency Medical Condition: Yes Medical Record Reviewed: Yes Differential Diagnosis strep, URI, viral pharyngitis, STD Narrative Course 21 year-old proximal 12 week by dates female presents to the emergency room for evaluation of severe sore throat over the past 3 days. She has associated body aches and chills but denies any objective fevers. She is afebrile well-appearing in the emergency room. Physical exam reveals significant erythema the pharynx with edema and exudates. Rapid strep is positive. Patient discharged with prescription for amoxicillin. Told to follow -up with her CLINICAL DENTAL TECHNICIAN and make the CLINICAL DENTAL TECHNICIAN aware of diagnosis. She will return to the emergency room for worsening symptoms. She understands and agrees to plan. Diagnosis Primary Impression: Streptococcal pharyngitis Referrals: Primary Care Physician Additional Instructions: Amoxicillin as directed, until gone. Tylenol as directed, as needed for pain. Take vitamins daily to help reduce chance of defects in your baby. Follow-up with CLINICAL DENTAL TECHNICIAN and inform her/him that you were diagnosed with strep throat. Return to the emergency room for worsening symptoms. Med/Other Pt SpecificInfo: Prescription(s) given Scripts Amoxicillin (Amoxicillin) 500 Mg Tab 500 MG PO BID for Infection for 10 Days, #20 TAB 0 Refills Prov: Esther Do MD 10/27/17 Disposition: 01 DISCHARGE HOME Condition: Stable Arpita Saeed October 27, 2017 19:00
[2017-10-27] MEDS ORDERED: AMOX500T PO (19:35)
== END 2017-10-27 19:45 | disposition home or self-care (01) ==
LOC: NEPK 17:56
DX: O98.811 Other maternal infectious and parasitic diseases complicating pregnancy, first trimester (principal); J02.0 Streptococcal pharyngitis; Z3A.12 12 weeks gestation of pregnancy
CPT/HCPCS: 87880; 99283

== ENCOUNTER 2018-04-27 12:39 | Inpatient (IN) ==
[2018-04-27] MEDS ORDERED: ceFAZolin 2 GM Premix Inj 2 GM/50 ML PIGGYBACK IV.SIG PRN (13:10)
--- NOTE | 2018-04-27 13:14 | P.HPOB ---
History of Present Illness Primary Care Physician: No Primary Care Physician Chief Complaint: repeat C/S History of Present Illness: Ms. Lam is a 22yo at 38/0 presenting today for a scheduled repeat C/ section. She is doing well today and has no complaints. No vaginal bleeding, no leakage of fluids, no contractions, she is feeling the baby move. PMH: anemia, asthma, one seizure in 2017 PSH: C/section in 2016 Medications: none Allergies: NDKA Social Hx: lives with her 2 children No alcohol use No tobacco use No illicit drug use - Inpatient Certification I certify that the inpatient services were ordered in accordance with Medicare regulations governing the order. This includes certification that hospital inpatient services are reasonable and necessary and in the case of services not specified as inpatient-only under 42 CFR 419.22(n), that they are appropriately provided as inpatient services in accordance to with the 2-midnight benchmark under 43 CFR 412.3(e) Estimated Total Length of Stay (Days): 3 Plans for Post Hospital Care: Home Review of Systems Constitutional: Denies chills, Denies fever(s) Cardiovascular: Denies chest pain Respiratory: Denies shortness of breath Gastrointestinal: Denies abdominal pain Skin/Breast: Denies rash Neurologic: Denies seizure-like activity PMFSH - Medical History Medical History: Medical History (Last Updated 03/25/18 @ 22:16 by Braeden Duncan MD) Asthma Bipolar disorder History of pre-eclampsia in prior , currently Hypertension Pelvic kidney Seizure disorder - Surgical History Surgical History: Surgical History (Last Updated 02/12/18 @ 18:33 by Shaun Powell MD) History of delivery - Tobacco History Second Hand Smoke Exposure: No Smoking Status: Never smoker - Alcohol History How Often Do You Have a Drink Containing Alcohol: Never - Substance Use History Substance History: No History of Abuse - Travel History History of Recent Travel: No Medications and Allergies Allergies Allergy/AdvReac Type Severity Reaction Status Date / Time bee venom protein (honey bee) Allergy Severe SWELLS UP Verified 02/20/18 21:52 hornet venom Allergy Severe SWELLS UP Verified 02/20/18 21:52 orange Allergy Severe SWELLS UP Verified 02/20/18 21:52 peanut Allergy Severe SWELLS UP Verified 02/20/18 21:52 Exam Narrative: GENERAL: Well-nourished, well-developed patient. SKIN: Warm and dry. HEAD: Normocephalic and atraumatic. EYES: No scleral icterus. No injection or drainage. ENT: No nasal drainage noted. Mucous membranes pink. Airway patent. NECK: Supple, trachea midline. No JVD. CARDIOVASCULAR: Regular rate and rhythm without murmurs, gallops, or rubs. RESPIRATORY: Breath sounds equal bilaterally. No accessory muscle use. BREASTS: Bilateral exam showed no masses , no retractions, no nipple discharge. ABDOMEN/GI: Abdomen soft, non-tender, bowel sounds present, no rebound, no guarding Gravid to 38 weeks size FHT's: Category: 1 Baseline: 120s Reactive: yes Variability: moderate Decels: none EXTREMITIES: No cyanosis or edema. BACK: Nontender without obvious deformity. No CVA tenderness. NEUROLOGICAL: Awake and alert. Motor and sensory grossly within normal limits. Five out of 5 muscle strength in all muscle groups. Normal speech. Results - Labs CBC & Chem 7: 04/27/18 13:20 Caprini VTE Risk Assessment Caprini VTE Risk Assessment: Moderate/High Risk (score >= 2) Caprini Risk Assessment Model: Point Value = 1 Point Value = 2 Point Value = 3 Point Value = 5 Age 41-60 Minor surgery BMI > 25 kg/m2 Swollen legs Varicose veins or History of unexplained or recurrent spontaneous Oral contraceptives or hormone replacement Sepsis (< 1 month) Serious lung disease, including pneumonia (< 1 month) Abnormal pulmonary function Acute myocardial infarction Congestive heart failure (< 1 month) History of inflammatory bowel disease Medical patient at bed rest Age 61-74 Arthroscopic surgery Major open surgery (> 45 min) Laparoscopic surgery (> 45 min) Malignancy Confined to bed (> 72 hours) Immobilizing plaster cast Central venous access Age >= 75 History of VTE Family history of VTE Factor V Leiden Prothrombin [id number] Lupus anticoagulant Anticardiolipin antibodies Elevated serum homocysteine Heparin-induced thrombocytopenia Other congenital or acquired thrombophilia Stroke (< 1 month) Elective arthroplasty Hip, pelvis, or leg fracture Acute spinal cord injury (< 1 month) Prophylaxis Regimen: Total Risk Factor Score Risk Level Prophylaxis Regimen 0-1 Low Early ambulation 2 Moderate Order ONE of the following: *Sequential Compression Device (SCD) *Heparin 5000 units SQ BID 3-4 Higher Order ONE of the following medications: *Heparin 5000 units SQ TID *Enoxaparin/Lovenox 40 mg SQ daily (WT < 150 kg, CrCl > 30 mL/min) *Enoxaparin/Lovenox 30 mg SQ daily (WT < 150 kg, CrCl > 10-29 mL/min) *Enoxaparin/Lovenox 30 mg SQ BID (WT < 150 kg, CrCl > 30 mL/min) AND/OR *Sequential Compression Device (SCD) 5 or more Highest Order ONE of the following medications: *Heparin 5000 units SQ TID (Preferred with Epidurals) *Enoxaparin/Lovenox 40 mg SQ daily (WT < 150 kg, CrCl > 30 mL/min) *Enoxaparin/Lovenox 30 mg SQ daily (WT < 150 kg, CrCl > 10-29 mL/min) *Enoxaparin/Lovenox 30 mg SQ BID (WT < 150 kg, CrCl > 30 mL/min) AND *Sequential Compression Device (SCD) Assessment and Plan - Diagnosis (1) 38 weeks gestation of Code(s): Z3A.38 - 38 weeks gestation of Status: Acute - Plan 22yo at 38/0 weeks gestation presenting for repeat C section FHT category 1, reassuring -admit to Labor and Delivery -Type and screen, CBC ordered -C/section to be performed by Dr. Rosangela Jacobs with the assistance of Dr. Larson
[2018-04-27] MEDS ORDERED: Citric Acid/Sodium Citrate Liq 30 ML UDC PO SCH (13:15)
[2018-04-27 14:07] LABS: Baso % (Auto) 0.3 % (0.0-2.0); Eos # (Auto) 0.1 th/mm3 (0.0-0.4); Eos % (Auto) 1.1 % (0.0-4.0); Hematocrit 34.1 % (35.0-46.0); Lymph % (Auto) 15.4 % (9.0-44.0); Mean Corpuscular HGB Conc 32.2 % (32.0-36.0); Mean Corpuscular Hemoglobin 26.4 pg (27.0-34.0); Mean Corpuscular Volume 82.1 fL (80.0-100.0); Mean Platelet Volume 8.7 fL (7.0-11.0); Mono # (Auto) 0.9 th/mm3 (0.0-0.9); Mono % (Auto) 7.3 % (0.0-8.0); Neut # (Auto) 9.7 th/mm3 (1.8-7.7); Neut % (Auto) 75.9 % (16.0-70.0); Platelet Count 225 th/mm3 (150-450); Red Blood Count 4.16 mil/mm3 (4.00-5.30); Red Cell Distribution Width 15.3 % (11.6-17.2); White Blood Count 12.8 th/mm3 (4.0-11.0)
[2018-04-27 14:21] LABS: Bacteria,Urine Few /hpf; Bilirubin,Urine Negative (Negative); Clarity,Urine Hazy (Clear); Color,Urine Yellow (Yellw/Straw); Glucose,Urine (UA) Negative (Negative); Leukocyte Esterase,Urine Moderate (Negative); Mucus,Urine Few /lpf (Occasional); Nitrite,Urine Negative (Negative); Specific Gravity,Urine 1.009 (1.002-1.035); Squamous Epithelial Cell,Urine 5 /hpf (0-5)
--- NOTE | 2018-04-27 14:28 | P.PN ---
Subjective Interval history: [facility] Attending The patient presents for repeat delivery. She is aware of the risks but we rediscussed the risks that include but are not limited to pain, infection , bleeding, injury to other organs like the bladder/bowels/nerves/vessels and the baby, need for repeat operation, need for a blood transfusion, need for a hysterectomy, need for a repeat operation, wound infection or breakdown, and other possible risks. She is aware of the alternatives and declines trial of labor. She does not desire a trial of labor for a . All of her questions were answered and consent signed. Physical Exam Vital signs: Vital Signs 04/27/18 13:30 04/27/18 13:40 Temperature 99.0 F Pulse Rate 92 H 77 Respiratory Rate 18 Blood Pressure 115/77 Intake & Output 04/26/18 04/27/18 04/27/18 18:59 06:59 18:59 Weight 71 kg Other: Weight On Admission 71 kg Results - Labs CBC & Chem 7: 04/27/18 13:20 Laboratory Results - last 24 hr 04/27/18 04/27/18 13:20 13:47 WBC 12.8 H RBC 4.16 Hgb 11.0 L Hct 34.1 L MCV 82.1 MCH 26.4 L MCHC 32.2 RDW 15.3 Plt Count 225 MPV 8.7 Neut % (Auto) 75.9 H Lymph % (Auto) 15.4 [place] % (Auto) 7.3 Eos % (Auto) 1.1 Baso % (Auto) 0.3 Neut # (Auto) 9.7 H Lymph # (Auto) 2.0 [place] # (Auto) 0.9 Eos # (Auto) 0.1 Baso # (Auto) 0.0 WBC Differential . Differential Comment Auto diff final Urine Color Yellow Urine Clarity Hazy H Urine pH 7.0 Ur Specific [place] 1.009 Urine Protein Negative Urine Glucose (UA) Negative Urine Ketones 20 Urine Occult Blood Negative Urine Nitrate Negative Urine Bilirubin Negative Urine Urobilinogen Less than 2 Ur Leukocyte Esterase Moderate H Urine RBC 1 Urine WBC 4 Ur Squamous Epith Cells 5 Urine Bacteria Few H Urine Mucus Few H Micro UA Comment Culture not ind Ur Microscopic Review Not Reportable Urine Culture Comments Culture not ind
[2018-04-27 14:30] LABS: Amphetamine Screen,Urine Neg (Neg); Barbiturate Screen,Urine Neg (Neg); Cannabinoid Screen,Urine Neg (Neg); Cocaine Screen,Urine Neg (Neg)
[2018-04-27] MEDS ORDERED: Oxytocin 30 Units/500ml Premix 30 UNITS/500 ML BAG IV.SIG ONE (14:35)
[2018-04-27 14:36] LABS: Opiate Screen,Urine Neg (Neg)
[2018-04-27] MEDS ORDERED: Morphine Sulfate PF Inj 5 MG/10 ML Ampul ONE (14:42)
[2018-04-27] MEDS ORDERED: Phenylephrine/NS 1000 MCG/10ML Syringe IV.PUSH ONE (14:44)
[2018-04-27] MEDS ORDERED: Naloxone Inj 0.4 MG/ML Vial IV.PUSH PRN (14:50)
[2018-04-27] MEDS ORDERED: ceFAZolin 1 GM Premix Inj 1 GM/50 ML FROZ.PIGGY IV.SIG ONE (15:22)
--- NOTE | 2018-04-27 16:33 | P.OBDELI ---
Procedure Note Performed by: Rosangela Jacobs MD Procedure: Repeat Low Transverse Section Indication for Delivery: Desired elective repeat Previous Condition: Other (Very thin LEN, bladder densely adherent to LEN, peritoneum adherent to rectus, dense scar of subcutaneous tissue, rectus densely adherent to fascia) Informed Consent Obtained: For anesthesia, For procedure Confirmed Correct: Patient, Procedure, Site, Time-out taken Anesthesia: Spinal Medication Prior to Procedure: As documented in eMAR Monitoring During Procedure: Blood pressure monitoring, monitor, Pulse oximetry Urinary Catheter: Inserted using sterile technique, To dependent drainage, ml urine output (400 cc clear urine, bladder retrograde instilled with sterile milk and noted to be intact) Sterile Preparation: Duraprep (Chloraprep) Position: Supine with wedge to left side - Operative Features Skin Incision: Pfannenstiel Uterine Incision: Low transverse w/knife / blunt ext Membranes Ruptured: Artificially Presentation: Occiput anterior Status of Infant: Viable, Cord blood Placenta Delivered: Intact Medications: Antibiotics, Oxytocin Estimated blood loss (mL): 600 Procedure Tolerated: Well Maternal Condition: Stable Baby Condition: Stable - Infant Infant: Male (Apgars 8/9)
[2018-04-27] MEDS ORDERED: Oxytocin 30 Units/500ml Premix 30 UNITS/500 ML BAG IV.SIG PRN (19:16)
--- NOTE | 2018-04-27 22:59 | MP ---
cc: Rosangela Jacobs MD DATE OF OPERATION: 04/27/2018 PREOPERATIVE DIAGNOSES: 1. Intrauterine at 39 weeks 1 day. 2. History of prior delivery. 3. Elective repeat delivery. POSTOPERATIVE DIAGNOSES: 1. Intrauterine at 39 weeks 1 day. 2. History of prior delivery. 3. Elective repeat delivery. PROCEDURE PERFORMED: 1. Repeat low transverse section with 2-layer closure and no extensions via Pfannenstiel skin incision. 2. Adhesiolysis of omentum and bladder. 3. Placement of hemostatic agent/[place]. 4. Retrograde instillation of bladder with sterile milk. INDICATIONS: The patient is a 22-year-old G3, P1-1-0-2, who presented at 39 weeks for repeat delivery. SURGEON: Rosangela Jacobs MD ASSISTANTS: Vielka Larson MD; Nuha Bernabe; Armida Duran SPECIMENS REMOVED: Placenta. ESTIMATED BLOOD LOSS: 600 mL. URINE OUTPUT: 400 mL of clear urine. INTRAVENOUS FLUIDS: 1 liter. DESCRIPTION OF PROCEDURE: After obtaining informed consent with risks, benefits and alternatives discussed at length including, but not limited to pain, infection, bleeding, injury to other organs like the bladder, bowel, nerves and vessels, injury to the baby, need for repeat operation, need for hysterectomy, need for blood transfusion, wound infection or breakdown, the patient was taken to the operating room with reassuring heart tones. Reassuring heart tones were confirmed upon entry into the operating room and the patient underwent spinal anesthesia without difficulty. She was placed in the dorsal supine position with a leftward tilt and reassuring heart tones once again confirmed. After confirming adequate anesthesia, the patient was prepped and draped in normal sterile fashion. A timeout procedure was performed. After once again confirming adequate anesthesia, a Pfannenstiel skin incision was created with the scalpel and carried down to the level of the fascia. The fascia was nicked in the midline with the scalpel and the fascial incision extended laterally with the curved Gracia scissors. The Julio C clamps were applied to the superior aspect of the fascial incision, which was dissected off the underlying rectus muscles bluntly and with sharp dissection. Julio C clamps were applied to the inferior aspect of the fascial incision, which was dissected off in a similar fashion. The rectus muscles were in the midline and the peritoneum entered bluntly. The peritoneal incision was extended bluntly. The bladder was noted to be adherent to the lower uterine segment; however, a bladder flap was able to be created by incising the vesicouterine peritoneum with the Metzenbaum scissors and a partial bladder flap was created. The bladder blade was inserted and the lower uterine segment was thinned out with the scalpel. A hysterotomy was created bluntly and extended bluntly. The vertex was elevated to the level of the hysterotomy and delivered atraumatically, followed by atraumatic delivery of the remainder of the . The was vigorous on the field and the nose and mouth were suctioned with the bulb suction. The cord was clamped after a 45-second delay and the vigorous taken by the pediatric team. The placenta was removed manually and the uterus exteriorized and cleared of all clots and debris. The lower uterine segment was noted to be very thin. The hysterotomy was repaired with a #1 chromic in a running locked fashion. A second layer of the same suture was used in an imbricating fashion. An additional [id number] was placed, after which excellent hemostasis was noted. The uterus was returned to the abdomen and noted to be hemostatic. There was some oozing by the bladder flap, but nothing available to be cauterized. [place] was placed. The bladder was retrograde instilled with 240 mL of sterile milk due to the adhesive nature of the bladder to the lower uterine segment and the need for dissection. This was noted to be intact. The bladder was drained and excellent hemostasis confirmed. The rectus muscles were examined and noted to be hemostatic. The rectus muscles were reexamined and noted to remain hemostatic. A small amount of peritoneum was dissected off of the fascia due to a loop. The peritoneum was reapproximated with 2-0 Vicryl in a running fashion. The rectus muscles were again confirmed to be hemostatic and the fascia was reapproximated with #1 Vicryl in a running fashion. The subcutaneous tissue was irrigated with antibiotic solution and noted to be hemostatic after application of Bovie cautery. The subcutaneous tissue was closed with 3-0 Vicryl in an interrupted fashion. The skin edges were reapproximated with 3-0 Monocryl in an subcuticular fashion. Excellent hemostasis and cosmesis were noted. A sterile dressing was placed. The patient was taken out of the operating room to the PACU in stable condition. MD Makeda Spaulding , 10:27 PM , 10:38 PM
[2018-04-28 05:52] LABS: Baso % (Auto) 0.3 % (0.0-2.0); Eos # (Auto) 0.1 th/mm3 (0.0-0.4); Eos % (Auto) 0.5 % (0.0-4.0); Hematocrit 29.4 % (35.0-46.0); Hemoglobin 9.3 gm/dL (11.6-15.3); Lymph # (Auto) 1.3 th/mm3 (1.0-4.8); Lymph % (Auto) 11.3 % (9.0-44.0); Mean Corpuscular HGB Conc 31.7 % (32.0-36.0); Mean Platelet Volume 8.4 fL (7.0-11.0); Mono # (Auto) 0.9 th/mm3 (0.0-0.9); Mono % (Auto) 7.9 % (0.0-8.0); Neut # (Auto) 9.1 th/mm3 (1.8-7.7); Platelet Count 206 th/mm3 (150-450); Red Blood Count 3.59 mil/mm3 (4.00-5.30); Red Cell Distribution Width 15.1 % (11.6-17.2); White Blood Count 11.4 th/mm3 (4.0-11.0)
--- NOTE | 2018-04-28 10:11 | P.PNOB ---
Subjective Post op day: 1 Interval history: Postoperative day number 1. AFVSS overnight. Pain well-controlled. Incision not draining. Decreased lochia. Denies dysuria. No breast tenderness. She is feeding the baby via bottle. Appetite good. No nausea or vomiting. + flatus. no bowel movement. Ambulating well. Denies calf pain, shortness of breath, or cough. Otherwise, she is doing well this morning and has no other complaints. Objective Vital Signs/I&O: Vital Signs 04/27/18 13:30 04/27/18 13:40 04/27/18 14:35 Temperature 99.0 F Pulse Rate 92 H 77 84 Respiratory Rate 18 Blood Pressure 115/77 04/27/18 16:20 04/27/18 16:24 04/27/18 17:01 Temperature 96.6 F L 97.6 F Pulse Rate 75 75 65 Respiratory Rate 18 12 16 Blood Pressure 113/59 L 111/71 112/63 04/27/18 17:09 04/27/18 17:15 04/27/18 17:40 Temperature 97.8 F Pulse Rate 68 77 Respiratory Rate 14 18 Blood Pressure 116/70 121/80 04/27/18 20:00 04/27/18 23:52 04/28/18 05:00 Temperature 97.4 F L 98.5 F 99.0 F Pulse Rate 75 88 79 Respiratory Rate 18 18 18 Blood Pressure 116/65 134/96 H 127/81 04/28/18 08:00 Temperature 98.0 F Pulse Rate 81 Respiratory Rate 20 Blood Pressure 111/71 Intake & Output 04/27/18 04/28/18 04/28/18 18:59 06:59 18:59 Weight 71 kg Other: Weight On Admission 71 kg Result Diagrams: 04/28/18 05:32 Objective Remarks: GENERAL: Well-nourished, well-developed patient. CARDIOVASCULAR: Regular rate and rhythm without murmurs, gallops, or rubs. RESPIRATORY: Breath sounds equal bilaterally. No accessory muscle use. ABDOMEN/GI: Abdomen soft, non-tender, bowel sounds present. Incision: Clean, dry and intact. Fundus: Firm, non-tender at umbilicus. GENITOURINARY: Light to moderate bleeding. EXTREMITIES: No cyanosis or edema, non-tender, without signs of DVT. Medications and IVs: Active Medications Citric Acid/Sodium Citrate (Sodium Citrate/Citric Acid Liq) 30 ml PO PATTERN GENERATOR OPERATOR [facility] Stop: 05/01/18 13:14 Last Admin: 04/27/18 14:37 Dose: 30 ml Diphenhydramine HCl (Benadryl) 50 mg PO Q6H PRN PRN Reason: MILD TO MODERATE ITCHING Stop: 04/28/18 14:49 Diphenhydramine HCl (Benadryl Inj) 25 mg IV.PUSH Q6H PRN PRN Reason: MILD TO MODERATE ITCHING Stop: 04/28/18 14:49 Diphtheria/Pertussis/Tetanus Vacc (Boostrix Vaccine Inj) 0.5 ml IM .ONCE ONE Stop: 04/28/18 16:01 Ferrous Sulfate (Ferosul) 325 mg PO BID@1200,1700 [facility] Cefazolin Sodium/Dextrose (Ancef 2 Gm Premix Inj) 2 gm in 50 mls @ 100 mls/hr IV.SIG PATTERN GENERATOR OPERATOR PRN PRN Reason: ON-CALL Stop: 05/01/18 13:09 Last Admin: 04/27/18 15:00 Dose: 100 mls/hr Lactated Ringer's (Lr 1000 Ml Inj) 1,000 mls @ 150 mls/hr IV.CONT .Q6H40M [facility] Last Admin: 04/28/18 07:57 Dose: Not Given Lactated Ringer's (Lr 1000 Ml Inj) 1,000 mls @ 100 mls/hr IV.CONT .Q10H [facility] Stop: 04/28/18 15:15 Last Admin: 04/28/18 01:24 Dose: 100 mls/hr Oxytocin (Pitocin 30 Units/Ns 500 Ml Premix) 30 units in 500 mls @ 100 mls/hr IV.SIG UNSCH PRN PRN Reason: Heavy bleeding Ibuprofen (Motrin) 800 mg PO Q8H PRN PRN Reason: cramping Last Admin: 04/28/18 06:44 Dose: 800 mg Ketorolac Tromethamine (Toradol Inj) 30 mg IM Q6H PRN PRN Reason: SEE LABEL COMMENTS Measles/Mumps/Rubella Vaccine Live (M-M-R Ii Vaccine Inj) 0.5 ml SQ .ONCE ONE Stop: 04/28/18 16:01 Miscellaneous Information ([facility] Information) 1 each OTHER UNSCH PRN PRN Reason: SEE LABEL COMMENTS Stop: 04/28/18 14:49 Miscellaneous Information ([facility] Information) 1 each OTHER UNSCH PRN PRN Reason: SEE LABEL COMMENTS Stop: 04/28/18 14:49 Naloxone HCl (Narcan Inj) 0.4 mg IV.PUSH UNSCH PRN PRN Reason: SEE LABEL COMMENTS Stop: 04/28/18 14:49 Oxycodone/Acetaminophen (Percocet 5/325 Mg) 1 tab PO Q4H PRN PRN Reason: PAIN SCALE 3 TO 5 Oxycodone/Acetaminophen (Percocet 5/325 Mg) 2 tab PO Q4H PRN PRN Reason: PAIN SCALE 6 TO 10 Sodium Chloride (Ns Flush) 2 ml IV.FLUSH BID BRENDAN Last Admin: 04/28/18 01:25 Dose: Not Given Sodium Chloride (Ns Flush) 2 ml IV.FLUSH PRN PRN PRN Reason: FLUSH AFTER USING IV ACCESS Assessment and Plan - Diagnosis (1) 38 weeks gestation of Code(s): Z3A.38 - 38 weeks gestation of Status: Acute - Plan 22 y/o female who is POD# s/p CXN. -Continue routine care. -Percocet and Motrin PRN pain. -Encouraged OOB. Advised pelvic rest for 6 wks. Will need a f/u appt. in 1 wk for incision check. -Re: ctrl, she would like Nexplanon. -D/c in 1-[address] Jacobs
[2018-04-28] MEDS: Ferrous Sulfate 325 MG Tablet PO SCH ×2 (15:00→18:13)
[2018-04-28] MEDS ORDERED: Diphtheria/Tetanus/Pertussis Vaccine Inj 0.5 ML Syringe IM ONE (16:00)
[2018-04-28] MEDS ORDERED: Measles/Mumps/Rubella Vaccine Inj 0.5 ML Vial SQ ONE (16:00)
--- NOTE | 2018-04-29 07:14 | P.PNOB ---
Subjective Post op day: 2 Interval history: Postoperative day number 2. AFVSS overnight. Pain well-controlled with Percocet. Incision not draining or bleeding. Decreased lochia. Denies dysuria. No breast tenderness. She is feeding the baby via bottle. Appetite good. No nausea or vomiting. + flatus. No bowel movement. Ambulating well. Denies calf pain, shortness of breath, or cough. Otherwise, she is doing well this morning and has no other complaints. She states that she would like to return home today. Objective Vital Signs/I&O: Vital Signs 04/28/18 08:00 04/28/18 16:20 04/28/18 20:00 Temperature 98.0 F 98.8 F 98.6 F Pulse Rate 81 91 H 70 Respiratory Rate 20 15 18 Blood Pressure 111/71 100/61 122/76 Result Diagrams: 04/28/18 05:32 Objective Remarks: GENERAL: Well-nourished, well-developed patient. CARDIOVASCULAR: Regular rate and rhythm without murmurs, gallops, or rubs. RESPIRATORY: Breath sounds equal bilaterally. No accessory muscle use. ABDOMEN/GI: Abdomen soft, non-tender, bowel sounds present. Incision: Clean, dry and intact. Fundus: Firm, non-tender at umbilicus. GENITOURINARY: Light to moderate bleeding. EXTREMITIES: No cyanosis or edema, non-tender, without signs of DVT. Medications and IVs: Active Medications Citric Acid/Sodium Citrate (Sodium Citrate/Citric Acid Liq) 30 ml PO CENTRAL SUPPLY ASSISTANT [facility] Stop: 05/01/18 13:14 Last Admin: 04/27/18 14:37 Dose: 30 ml Ferrous Sulfate (Ferosul) 325 mg PO BID@1200,1700 [facility] Last Admin: 04/28/18 18:13 Dose: Not Given Cefazolin Sodium/Dextrose (Ancef 2 Gm Premix Inj) 2 gm in 50 mls @ 100 mls/hr IV.SIG CENTRAL SUPPLY ASSISTANT PRN PRN Reason: ON-CALL Stop: 05/01/18 13:09 Last Admin: 04/27/18 15:00 Dose: 100 mls/hr Lactated Ringer's (Lr 1000 Ml Inj) 1,000 mls @ 150 mls/hr IV.CONT .Q6H40M [facility] Last Admin: 04/28/18 16:30 Dose: Not Given Oxytocin (Pitocin 30 Units/Ns 500 Ml Premix) 30 units in 500 mls @ 100 mls/hr IV.SIG UNSCH PRN PRN Reason: Heavy bleeding Ibuprofen (Motrin) 800 mg PO Q8H PRN PRN Reason: cramping Last Admin: 04/28/18 22:54 Dose: 800 mg Ketorolac Tromethamine (Toradol Inj) 30 mg IM Q6H PRN PRN Reason: SEE LABEL COMMENTS Oxycodone/Acetaminophen (Percocet 5/325 Mg) 1 tab PO Q4H PRN PRN Reason: PAIN SCALE 3 TO 5 Last Admin: 04/28/18 22:55 Dose: 1 tab Oxycodone/Acetaminophen (Percocet 5/325 Mg) 2 tab PO Q4H PRN PRN Reason: PAIN SCALE 6 TO 10 Sodium Chloride (Ns Flush) 2 ml IV.FLUSH BID BRENDAN Last Admin: 04/28/18 22:55 Dose: Not Given Sodium Chloride (Ns Flush) 2 ml IV.FLUSH PRN PRN PRN Reason: FLUSH AFTER USING IV ACCESS Assessment and Plan - Diagnosis (1) 38 weeks gestation of Code(s): Z3A.38 - 38 weeks gestation of Status: Acute - Plan 22 y/o female who is POD# 2 s/p CXN. -Continue routine care. -Percocet and Motrin PRN pain. -Encouraged OOB. Advised pelvic rest for 6 wks. Will need a f/u appt. in 1 wk for incision check. -Re: ctrl, she would like Nexplanon. -Patient stable for discharge today. eleni Jacobs
[2018-04-29 08:31] VITALS: BP 111/77
[2018-04-29 08:34] VITALS: PULSE 89
[2018-04-29 08:35] VITALS: RESP 20
[2018-04-29 08:37] VITALS: TEMP 98.1
[2018-04-29] MEDS: Ferrous Sulfate 325 MG Tablet PO SCH (12:00)
== END 2018-04-29 12:23 | disposition home or self-care (01) ==
LOC: H2E 12:39 → H1EA 17:32
PROVIDERS: ADMIT Obstetrics & Gynecology; ATTEND Obstetrics & Gynecology